=== PATIENT | male | born 1945 | race Caucasian/White ===

== ENCOUNTER → 2019-01-11 11:30 | Outpatient (CLI) | payer MEDICARE, SELFPAY ==
--- NOTE | 2019-01-11 | DI.RAD.S_ITS ---
PROCEDURE: XR HIP W PEL IF DONE LT MIN 4V INDICATIONS: Bilateral Hip Pain TECHNIQUE: AP pelvis with lateral view(s) of the bilateral hip(s). COMPARISON: None. 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 No fracture or dislocation. No evidence of avascular necrosis of femoral heads. Pelvic ring is intact. No suspicious bony lesions. Soft tissues: The visualized bowel gas pattern is normal. No suspicious soft tissue calcifications. 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 Dictated by: Sunil Mcintosh M.D. on 01/11/2019 at 14:24 Approved by: Sunil Mcintosh M.D. on 01/11/2019 at 14:25
== END ==
PROVIDERS: Visit Provider Internal Medicine
DX: M25.551 Pain in right hip (principal); M25.552 Pain in left hip; M16.0 Bilateral primary osteoarthritis of hip
CPT/HCPCS: 73522

== ENCOUNTER 2019-08-08 10:03 | Emergency (ER) | payer MEDICARE, SELFPAY ==
[2019-08-08 10:15] VITALS: BP 138/71; PULSE 68; RESP 15; O2SAT 98; BMI 24.2
--- NOTE | 2019-08-08 10:17 | ED_ITS ---
HPI - Extremity Injury (Lower) General Chief Complaint: Extremity Injury, Lower Stated Complaint: 'fractured hip' Time Seen by Provider: 08/08/19 10:09 Source: patient and family Mode of arrival: Ambulatory Limitations: no limitations History of Present Illness HPI Narrative: 73-year-old male here for evaluations of injuries that he sustained when he had what appears to be a mechanical fall 2 days ago. He is not on blood thinners per report. He states that he did hit his head. There was no loss of consciousness. He is unsure exactly how he fell however family bedside states they think that he tripped while getting up. Has had pain in his right hip since then. Has been able to ambulate but since the fall the pain has been getting worse. It is especially worse when he is sitting. Does have midline neck pain. He is placed in a cervical collar by nursing staff in triage. Related Data Previous Rx's Medication Instructions Recorded naproxen [Naprosyn] 500 mg PO BID PRN #30 tab 08/08/19 Allergies Allergy/AdvReac Type Severity Reaction Status Date / Time No Known Drug Allergies Allergy Verified 08/08/19 10:27 Review of Systems Constitutional Constitutional: Denies fever(s) and Denies headache(s) ENT Ears, Nose, Mouth, and Throat: Denies headache(s) and Reports neck pain Cardiovascular Cardiovascular: Denies chest pain and Denies dyspnea Respiratory Respiratory: Denies dyspnea Gastrointestinal Gastrointestinal: Denies abdominal pain, Reports nausea and Denies vomiting Musculoskeletal Musculoskeletal: Denies myalgias and Reports neck pain Comments: Right hip pain Integumentary/Breasts Skin/Breast: Denies lesions and Denies rash Neurologic Neurologic: Denies headache(s) Comments: Some tingling to the inside of the right foot Hematologic/Lymphatic Hematologic/Lymphatic: Denies easy bleeding and Denies easy bruising Patient History Social History Smoking Status: Current every day smoker Exam Initial Vital Signs Initial Vital Signs: Vital Signs Pulse Rate 68 08/08/19 10:15 Respiratory Rate 15 08/08/19 10:15 Blood Pressure 138/71 08/08/19 10:15 Pulse Oximetry 98 08/08/19 10:15 Const General: cooperative, well developed and well groomed Orientation: alert, awake and oriented x3 HENMT Head: normal to inspection and normocephalic Resp Effort & Inspection: normal respiratory effort Auscultation: clear to auscultation bilaterally Cardio Rate: regular rate Rhythm: regular rhythm GI Inspection: non-distended Palpation: soft Back/Spine/Pelvis Cervical Spine: collar present Skin Lesions: no lesions Rashes: no rashes Neuro General: alert and awake Cognition: normal cognition Speech: speech normal Extrem Other: Tenderness to palpation of the right hip Psych Appearance: grossly normal and well kempt Course Orders Ordered: ED Orders 08/08/19 10:19 CT cervical spine wo con Stat XR hip w pel if done RT 2V Stat 08/08/19 10:51 CT head/brain wo con Stat Discontinued Medications Ondansetron HCl (Zofran Odt) 4 mg PO NOW ONE Stop: 08/08/19 10:20 Last Admin: 08/08/19 10:28 Dose: 4 mg Documented by: DEISI Vital Signs Vital signs: Vital Signs - 8 hr 08/08/19 10:15 08/08/19 10:20 08/08/19 11:00 Temperature 98.0 F Pulse Rate 68 64 Respiratory Rate 15 18 Blood Pressure 138/71 Blood Pressure [Right Arm] 144/65 H Pulse Oximetry 98 100 MDM - Extremity Injury (Lower) Imaging Data CT scan - head: Radiologist's impression: [place] [address] CT Scan Report Signed Patient: Sona Meza#: [id number] : 6Acct:[id number] Age/Sex: 73 / MDate of Service: 08/08/19 Loc: ED Accession Number: [id number] Procedure: CT head/brain wo con Ordering Provider: Vimal Molina D.O. PROCEDURE: CT HEAD/BRAIN WO CON INDICATIONS: Fall with head injury last night TECHNIQUE: Noncontrast 4.5 mm thick angled axial sections acquired from the foramen magnum to the vertex, with coronal and sagittal reformats. For radiation dose reduction, the following was used: automated exposure control, adjustment of mA and/or kV according to patient size. COMPARISON: [facility], CT, CT CERVICAL SPINE WO CON, 08/08/2019, 10:43. FINDINGS: Image quality: Excellent. CSF spaces: Basal cisterns are patent. No extra-axial fluid collections. The ventricles are symmetric in size and shape. Brain: No intracranial bleeds or masses. There is cerebral volume loss for age, with resultant ventricular and sulcal prominence. There are periventricular and deep white matter chronic small vessel ischemic changes. There is intracranial internal carotid artery atherosclerosis. Skull and face: Calvarium and visualized facial bones appear intact, without suspicious lesions. Sinuses: Visualized sinuses and mastoids are clear. IMPRESSION: No acute intracranial hemorrhage is seen. No acute intracranial process is seen. Note is made of age-appropriate brain parenchymal volume loss and chronic small vessel ischemic changes. Dictated by: Mustapha Coates M.D. on 08/08/2019 at 9:55 Approved by: Mustapha Coates M.D. on 08/08/2019 at 9:[address]: Radiologist's impression: [place] [address] CT Scan Report Signed Patient: Ryan Meza#: [id number] : 6Acct:[id number] Age/Sex: 73 / MDate of Service: 08/08/19 Loc: ED Accession Number: [id number] Procedure: CT cervical spine wo con Ordering Provider: Vimal Molina D.O. PROCEDURE: CT CERVICAL SPINE WO CON INDICATIONS: Fall with midline pain last night TECHNIQUE: Noncontrast 3 mm thick sections acquired from the skull base to the T4 level. Sagittal and coronal reformats were then constructed. For radiation dose reduction, the following was used: automated exposure control, adjustment of mA and/or kV according to patient size. COMPARISON: [facility], CT, CT HEAD/BRAIN WO CON, 08/08/2019, 10:43. FINDINGS: Image quality: Excellent. Bones: No fractures or dislocations. Visualized superior ribs are intact. Relatively prominent degenerative changes are seen throughout. Prominent facet hypertrophy can be seen on the left at C2-C3, C3-C4, and C4-C5. There is fusion of the left facet joint at C3-C4. Vertebral body fusion can be seen at C6-C7. Prominent bridging anterior osteophytes are seen throughout the cervical spine. Soft tissues: Prevertebral soft tissues are normal in thickness. No paravertebral hematomas. No apical pneumothoraces. Atherosclerotic calcification is noted. IMPRESSION: No fractures are seen. Advanced cervical spine degenerative changes are seen. Dictated by: Mustapha Coates M.D. on 08/08/2019 at 9:57 Approved by: Mustapha Coates M.D. on 08/08/2019 at 9:59 X-ray hip: Radiologist's impression: [address] [address] XRay Report Signed Patient: Sona MezaMR#: [id number] : 6Acct:[id number] Age/Sex: 73 / MDate of Service: 08/08/19 Loc: ED Accession Number: [id number] Procedure: XR hip w pel if done RT 2V Ordering Provider: Vimal Molina D.O. PROCEDURE: XR HIP W PEL IF DONE RT 2V INDICATIONS: Fall with hip pain TECHNIQUE: AP pelvis with lateral view(s) of the right hip(s). COMPARISON: [facility], CR, XR HIP W PEL IF DONE JUDY 3TO4V, 01/11/2019, 11:42. FINDINGS: Bones: No fractures or dislocations. Pelvic ring appears intact. No suspicious bony lesions. There is severe degenerative joint disease in hips bilaterally, right greater than left. Soft tissues: The visualized bowel gas pattern is normal. No suspicious soft tissue calcifications. IMPRESSION: No definitive fractures or dislocations. Because of severe degenerative changes and suboptimal position (the patient has limited range of motion), subtle occult fractures could be present. If clinical symptoms persist or clinical suspicion for pathology is high, advanced imaging such as CT or MRI is suggested for further evaluation. Dictated by: Pebbles Reeder M.D. on 08/08/2019 at 11:01 Approved by: Pebbles Reeder M.D. on 08/08/2019 at 11:07 [facility] Narrative Medical decision making narrative: Head CT and cervical spine CT negative. The cervical collar was removed. There is no definitive fracture noted on the x-ray of the right hip every does have significant amount of arthritis. He was able to ambulate around the emergency department. I will hold on a CT scan for now given the fact that he has been walking on it the past 2 days and the fact that he has been walking here in the ER. I did discuss this with the patient his family who are bedside. Expressed understanding and agreement plan. Discharge Plan Departure Patient Disposition: Home Clinical Impression: Hip pain, right, Arthritis of right hip Instructions: DI for Arthritis Activity Restrictions/Additional Instructions: Recommend you talk with your primary doctor about referral to see orthopedics. You have no restrictions in your activity. Return to the emergency department for any new or worsening symptoms Prescriptions: New naproxen [Naprosyn] 500 mg tablet 500 mg PO BID PRN (Reason: pain) Qty: 30 RF: 0
[2019-08-08 10:20] VITALS: TEMP 36.7
[2019-08-08] MEDS: ONDANSETRON 4 MG ODT PO (10:28)
--- NOTE | 2019-08-08 10:51 | DI.CT.S_ITS ---
PROCEDURE: CT HEAD/BRAIN WO CON INDICATIONS: Fall with head injury last night TECHNIQUE: Noncontrast 4.5 mm thick angled axial sections acquired from the foramen magnum to the vertex, with coronal and sagittal reformats. For radiation dose reduction, the following was used: automated exposure control, adjustment of mA and/or kV according to patient size. COMPARISON: [facility], CT, CT CERVICAL SPINE WO CON, 08/08/2019, 10:43. FINDINGS: Image quality: Excellent. CSF spaces: Basal cisterns are patent. No extra-axial fluid collections. The ventricles are symmetric in size and shape. Brain: No intracranial bleeds or masses. There is cerebral volume loss for age, with resultant ventricular and sulcal prominence. There are periventricular and deep white matter chronic small vessel ischemic changes. There is intracranial internal carotid artery atherosclerosis. Skull and face: Calvarium and visualized facial bones appear intact, without suspicious lesions. Sinuses: Visualized sinuses and mastoids are clear. IMPRESSION: No acute intracranial hemorrhage is seen. No acute intracranial process is seen. Note is made of age-appropriate brain parenchymal volume loss and chronic small vessel ischemic changes. Dictated by: Mustapha Coates M.D. on 08/08/2019 at 9:55 Approved by: Mustapha Coates M.D. on 08/08/2019 at 9:57
[2019-08-08 11:00] VITALS: BP 144/65; PULSE 64; RESP 18; O2SAT 100
--- NOTE | 2019-08-08 11:24 | PC.NURSE ---
tolerated ambulation with cane to bathroom, noted with occasional facial grimaces. dr bauman made aware.
== END 2019-08-08 11:58 | disposition home or self-care (01) ==
PROVIDERS: Emergency Provider Emergency Medicine
DX: M25.551 Pain in right hip (principal); M16.11 Unilateral primary osteoarthritis, right hip; S09.90XA Unspecified injury of head, initial encounter; W19.XXXA Unspecified fall, initial encounter
CPT/HCPCS: 70450; 72125; 73502; 99283; 99284

== ENCOUNTER → 2019-11-05 16:58 | Outpatient (CLI) | payer MEDICARE, SELFPAY ==
[2019-11-05 17:53] LABS: Add Manual Diff / Slide Review NO; Basophils Absolute Auto 0 /uL (0-100); Basophils Percent Auto 0.2 % (0-2); Eosinophils Absolute Auto 100 /uL (0-450); Eosinophils Percent Auto 0.6 % (2-4); Hematocrit 43.9 % (41-53); Hemoglobin 15.5 g/dL (13.5-17.5); Lymphocytes Absolute Auto 2000 /uL (1100-4500); Lymphocytes Percent Auto 20.5 % (25-40); Mean Corpuscular HGB Conc 35.4 % (30-36); Mean Corpuscular Hemoglobin 33.7 PG (26-34); Mean Corpuscular Volume 95.1 fL (80-100); Monocytes Absolute Auto 800 /uL (0-900); Monocytes Percent Auto 8.3 % (3-14); Neutrophils Absolute Auto 6900 /uL (1500-7000); Neutrophils Percent Auto 70.4 % (50-75); Platelet Count 337 X10^3/uL (150-400); Red Blood Cell Count 4.61 X10^6/uL (4.5-5.9); Red Cell Distribution Width 12.9 % (11.6-14.8); White Blood Cell Count 9.7 X10^3/uL (4.5-11.0)
== END ==
PROVIDERS: Visit Provider Orthopaedic Surgery Adult Reconstructive Orthopaedic Surgery
DX: Z01.818 Encounter for other preprocedural examination (principal); Z01.812 Encounter for preprocedural laboratory examination
CPT/HCPCS: 36415; 85025; 93005; 93010

== ENCOUNTER 2021-01-01 13:04 | Emergency (ER) | payer MEDICARE, SELFPAY ==
[2021-01-01] VITALS (22 sets, daily range): BP systolic 162–195; BP diastolic 82–106; PULSE 57–86; RESP 5–41; TEMP 37.1–37.3; O2SAT 83–99; BMI 20.7
--- NOTE | 2021-01-01 13:38 | DI.MRI.S_ITS ---
PROCEDURE: MR CERVICAL SPINE WO CON INDICATIONS: head injury and fall, CT c spine abnormality TECHNIQUE: Noncontrast sagittal T1 spin echo and T2 fast spin echo, sagittal STIR, foraminal oblique sagittal T2 fast spin echo, and axial gradient echo or T2 fast spin echo through the cervical spine. COMPARISON: [facility], CT, CT CERVICAL SPINE WO CON, 08/08/2019, 10:43. FINDINGS: Image quality: Severely degraded secondary to patient motion artifact. Alignment and Curvature: There is normal bony alignment. Bone Marrow: Marrow demonstrates normal overall signal. Spinal Cord: Increased T2 signal noted in the cervical spinal cord level of the C2-C3 and C5-C6 discs compatible with cord edema. No cerebellar tonsillar herniation. Paraspinous Soft Tissues: No paravertebral masses. Prevertebral soft tissue edema is noted extending from C2-T2. The anterior and posterior longitudinal ligaments are inadequately assessed due to motion artifact. C2-C3: Loss of disc signal. Moderate, diffuse disc bulge. Moderate bilateral facet hypertrophy. Severe narrowing of the central canal with compression of the cervical spinal cord. Severe bilateral neural foraminal narrowing with compression of the exiting C3 nerve roots. C3-C4: Loss of disc signal. Mild right and severe left facet hypertrophy. Mild narrowing of the central canal. Severe left neural foraminal narrowing with compression of the exiting left C4 nerve root. C4-C5: Loss of disc signal. Mild, diffuse disc bulge. Moderate right and severe left facet hypertrophy. Moderate narrowing of the central canal. Moderate right and severe left neural foraminal narrowing with compression of the exiting left C5 nerve root. C5-C6: Loss of disc signal and disc height. Fluid signal noted in the anterior disc space which extends into the prevertebral soft tissues possibly related to acute traumatic injury. The anterior longitudinal ligament may be discontiguous at the C5-C6 disc level, however the ligament is poorly visualized and cannot be definitively assessed. Moderate, diffuse disc bulge. Moderate bilateral facet hypertrophy. Severe narrowing of the central canal with marked compression of the cervical spinal cord. Severe bilateral neural foraminal narrowing with compression of the exiting C6 nerve roots. C6-C7: Near complete loss of disc substance with partial vertebral body fusion. Moderate bilateral facet hypertrophy. Moderate narrowing of the central canal. Moderate bilateral neural foraminal narrowing. No definite neural compression. C7-T1: Near complete loss of disc substance. Mild narrowing of the central canal. Severe bilateral neural foraminal narrowing with compression of the exiting C8 nerve roots. IMPRESSION: 1. Image quality severely degraded by patient motion artifact. 2. Extensive prevertebral soft tissue edema in the setting of trauma is highly concerning for soft tissue/ligamentous injury. Please note the anterior and posterior longitudinal ligaments are inadequately assessed due to motion artifact. Possible tear of the anterior longitudinal ligament noted at the C5-C6 disc level. 3. Multilevel degenerative disc disease. 4. Multilevel facet arthropathy. 5. Severe C2-C3 and C5-C6 central canal narrowing with marked compression of the cervical spinal cord and spinal cord edema. 6. Fluid signal in the anterior margin of the C5-C6 disc space extending into the prevertebral soft tissues concerning for acute intervertebral disc posttraumatic hemorrhage. Dictated by: Ana Singh MD, PhD on 01/01/2021 at 16:21 Approved by: Ana Singh MD, PhD on 01/01/2021 at 16:33
[2021-01-01] MEDS: levETIRAcetam 250 MG TABLET 750 MG PO (14:00)
[2021-01-01] MEDS: ACETAMINOPHEN 325 MG TABLET 650 MG PO (14:00)
[2021-01-01] MEDS: LORazepam 2 MG/ML INJ 1 MG IV (15:14)
--- NOTE | 2021-01-01 15:19 | ED.FALL ---
HPI - Fall <LUNA Allison - Last Filed: 01/01/21 20:42> General Chief Complaint: Fall Stated Complaint: here for MRI Time Seen by Provider: 01/01/21 13:09 Source: patient and EMS Mode of arrival: EMS Limitations: other (History of dementia ) History of Present Illness HPI Narrative: This is a 75-year-old gentleman, smoker, presents to ED with [facility] for MRI test of C-spine. Patient has past medical history significant for seizure, dementia. Patient was evaluated at [facility] Emergency room after he had unwitnessed fall and had a seizure. Patient had a workup done with blood, urine, UDS, and CT test of head and C-spine. CT of C-spine shows increased diastases between bridging osteophytes at C5 through C6 with mild widening of the disc space compare to prior exam suggestive of fracture at the level of the bridging osteophytes and recommended for MRI test. [facility] currently does not have MRI capability and was referred to [facility] for further evaluation of MRI test. Patient sustained laceration on forehead which was repaired at [facility] with Dermabond. Patient reports he has headache. C-spine mildly tender to palpate. Received patient with rigid C-collar. Patient takes Keppra 750 mg b.i.d. dose which he had not taken for morning dose today. Patient received IV fluid and Ativan 1 mg at [facility]. Next of Kin, Sister Taylor Sharif at [phone]. Patient lives at home with a niece and nephew. Related Data Home Medications Medication Instructions Recorded Confirmed levetiracetam 750 mg PO BID 12/12/19 12/12/19 metoprolol tartrate 12.5 mg PO BID 12/12/19 12/12/19 naproxen [Naprosyn] 440 mg PO BID 12/12/19 12/12/19 simvastatin 40 mg PO BEDTIME 12/12/19 12/12/19 Allergies Allergy/AdvReac Type Severity Reaction Status Date / Time No Known Drug Allergies Allergy Verified 01/01/21 13:06 Review of Systems <LUNA Allison - Last Filed: 01/01/21 20:42> Review of Systems Narrative: General: Denies fever, chills, fatigue, malaise, sweats. Musculoskeletal: See HPI Skin: HPI Neurologic: See HPI. Patient denies weakness to extremities on upper and lower bilaterally. Patient oriented to himself only which is his baseline. Psychiatric: No concerning psychosocial issues. Difficulty obtained HPI and review of systems due to history of dementia. Patient History <LUNA Allison - Last Filed: 01/01/21 20:42> Medical History Alzheimer's dementia Anxiety Chest pain Depression Easy bruisability Epilepsy Heart burn Neck pain Numbness and tingling Osteoarthritis Pain RBBB (right bundle branch block) Seizures TIA (transient ischemic attack) Surgical History No history of previous surgery Social History household members: family Smoking Status: Current every day smoker alcohol intake: current Smoking Status: Current every day smoker tobacco type: cigarettes alcohol intake frequency: 3 or more drinks per day Substance Use Type: marijuana Exam <LUNA Allison - Last Filed: 01/01/21 20:42> Narrative Exam Narrative: General appearance: well developed, well nourished, in no acute distress. Head: normocephalic, atraumatic, no scalp lesions, non-tender. ENT: Bilateral auditory canals occluded with cerumen. No drainage from bilateral ears or nares. Hearing grossly intact. Turbinate without erythema or swelling. Facial sinuses nontender to palpate. Mucous membrane dry, no mucosal lesion. Throat without erythema, tonsillar hypertrophy or exudate. Uvula in midline, airway patent. Neck/Thyroid: Patient has a ridgid c collar on. Reports tenderness to palpate in posterior c spine to palpate. Skin: no suspicious rashes, lesions over visible areas. Warm and dry and appropriate color for ethnicity. Heart: no clubbing, no cyanosis, no edema. S1 and S2 normal. RRR w/o murmurs, clicks, or bruits. Lungs: Breathing even and unlabored. No stridor. No accessory muscles used. Able to speak in full sentences. Chest: normal shape and expansion. Abdomen: non-obese, non-distended. Neurologic: alert and oriented to himself. Bilateral pupils 3 mm reactive to light. Bilateral upper and lower extremity strength equal. Reports intact sensation in upper and lower extremities. Difficult to follow verbal command. Psych: good eye contact, normal affect. Cooperative. Initial Vital Signs Initial Vital Signs: Vital Signs Pulse Rate 58 L 01/01/21 13:06 Respiratory Rate 14 01/01/21 13:06 Blood Pressure 186/82 H 01/01/21 13:06 Pulse Oximetry 99 01/01/21 13:06 <Vimal Molina DO - Last Filed: 01/02/21 07:35> Initial Vital Signs Initial Vital Signs: Vital Signs Pulse Rate 58 L 01/01/21 13:06 Respiratory Rate 14 01/01/21 13:06 Blood Pressure 186/82 H 01/01/21 13:06 Pulse Oximetry 99 01/01/21 13:06 Scores <LUNA Allison - Last Filed: 01/01/21 20:42> GCS Nina coma scale eye opening: Spontaneous Gustavus coma scale verbal response: Confused Gustavus coma scale motor response: Obey commands Gustavus coma scale total score: 14 Course <LUNA Allisno - Last Filed: 01/01/21 20:42> Orders Ordered: Discontinued Medications Acetaminophen (Acetaminophen 325 Mg Tablet) 650 mg PO NOW ONE Stop: 01/01/21 13:36 Last Admin: 01/01/21 14:00 Dose: 650 mg Documented by: JAYRO Sodium Chloride (Normal Saline 0.9%) 1,000 mls @ 125 mls/hr IV CONT ROBERTO Last Infusion: 01/01/21 21:01 Dose: 125 mls/hr Documented by: Admin: 01/01/21 20:23 Dose: 125 mls/hr Documented by: JAYRO Levetiracetam (Levetiracetam 250 Mg Tablet) 750 mg PO NOW ONE Stop: 01/01/21 13:36 Last Admin: 01/01/21 14:00 Dose: 750 mg Documented by: JAYRO Lorazepam (Lorazepam 2 Mg/Ml Inj) 1 mg IV NOW ONE Stop: 01/01/21 15:07 Last Admin: 01/01/21 15:14 Dose: 1 mg Documented by: LEANNE Morphine Sulfate (Morphine 2 Mg/Ml Inj) 2 mg IV Q5MIN PRN PRN Reason: Pain, Mild (1-3) Last Admin: 01/01/21 20:37 Dose: 2 mg Documented by: JAYRO Ondansetron HCl (Ondansetron 4 Mg/2 Ml Inj) 4 mg IV NOW ONE Stop: 01/01/21 20:32 Last Admin: 01/01/21 20:37 Dose: 4 mg Documented by: JAYRO Reevaluation(s) Reevaluation #1: Spoke with the patient's sister of MRI findings and she would like to talk with the patient and is on her way to the hospital for options for treatment either surgical vs. non-invasive. Time: 18:10 Reevaluation #2: Patient elects for the cervical surgery and to [place] to the sister and I have verified the patient's wishes which he concurred. [facility] transfer center contacted and confirmed this via ALS ground transfer. Time: 20:00 Consultations Consultation #1: RAD called to inform that too much motion artifacts and could not provide the diagnostic results. Radiologist's is concerned for ligamentous injury which could be unstable for c spine injury. Recommending moderate sedation involving anesthesiologist care. Shared this information with Dr. Molina for recommendation and plan for the care. Anesthesiologist contacted and informed no capability to monitor the patient in MRI for longer and moderate sedation. Will consult [facility] for possible transferring the patient. Pushing imaging to [facility]. Rigid collar changing to [place] collar. Time: 16:35 Consultation #2: Spoke with Dr. Kellogg (spine/neuro) at [facility] and he informed imaging quality is good enough. If seeking surgical intervention, he accepts the patient's transfer but if decides non-invasive treatment, patient could be dc to home with [place] collar on. Will contact the family member and will discuss the findings. Family (sister Taylor Sharif) contacted over the phone on [phone] and left a phone message to call back ER. Time: 17:55 Vital Signs Vital signs: Vital Signs - 8 hr 01/01/21 13:06 01/01/21 13:09 01/01/21 13:30 Temperature Pulse Rate 58 L 57 L 58 L Respiratory Rate 14 24 27 H Blood Pressure 186/82 H Pulse Oximetry 99 97 95 01/01/21 14:00 01/01/21 14:30 01/01/21 14:41 Temperature Pulse Rate 62 86 79 Respiratory Rate 26 H 41 H 18 Blood Pressure 175/93 H Pulse Oximetry 97 83 L 98 01/01/21 15:49 01/01/21 15:50 01/01/21 16:00 Temperature Pulse Rate 73 72 82 Respiratory Rate 14 5 L 27 H Blood Pressure 195/90 H Pulse Oximetry 99 97 97 01/01/21 16:30 01/01/21 17:00 01/01/21 17:30 Temperature Pulse Rate 68 76 68 Respiratory Rate 20 27 H 17 Blood Pressure Pulse Oximetry 96 98 95 01/01/21 18:00 01/01/21 18:06 01/01/21 18:07 Temperature 99.1 F Pulse Rate 76 79 81 Respiratory Rate 22 24 23 Blood Pressure 173/106 H Pulse Oximetry 95 96 95 01/01/21 18:30 Temperature Pulse Rate 69 Respiratory Rate 19 Blood Pressure Pulse Oximetry 95 <Vimal Molina DO - Last Filed: 01/02/21 07:35> Orders Ordered: Discontinued Medications Acetaminophen (Acetaminophen 325 Mg Tablet) 650 mg PO NOW ONE Stop: 01/01/21 13:36 Last Admin: 01/01/21 14:00 Dose: 650 mg Documented by: JAYRO Sodium Chloride (Normal Saline 0.9%) 1,000 mls @ 125 mls/hr IV CONT ROBERTO Last Infusion: 01/01/21 21:01 Dose: 125 mls/hr Documented by: Admin: 01/01/21 20:23 Dose: 125 mls/hr Documented by: JAYRO Levetiracetam (Levetiracetam 250 Mg Tablet) 750 mg PO NOW ONE Stop: 01/01/21 13:36 Last Admin: 01/01/21 14:00 Dose: 750 mg Documented by: JAYRO Lorazepam (Lorazepam 2 Mg/Ml Inj) 1 mg IV NOW ONE Stop: 01/01/21 15:07 Last Admin: 01/01/21 15:14 Dose: 1 mg Documented by: LEANNE Morphine Sulfate (Morphine 2 Mg/Ml Inj) 2 mg IV Q5MIN PRN PRN Reason: Pain, Mild (1-3) Last Admin: 01/01/21 20:37 Dose: 2 mg Documented by: JAYRO Ondansetron HCl (Ondansetron 4 Mg/2 Ml Inj) 4 mg IV NOW ONE Stop: 01/01/21 20:32 Last Admin: 01/01/21 20:37 Dose: 4 mg Documented by: JAYRO Vital Signs Vital signs: Vital Signs - 8 hr 01/01/21 13:06 01/01/21 13:09 01/01/21 13:30 Temperature Pulse Rate 58 L 57 L 58 L Respiratory Rate 14 24 27 H Blood Pressure 186/82 H Pulse Oximetry 99 97 95 01/01/21 14:00 01/01/21 14:30 01/01/21 14:41 Temperature Pulse Rate 62 86 79 Respiratory Rate 26 H 41 H 18 Blood Pressure 175/93 H Pulse Oximetry 97 83 L 98 01/01/21 15:49 01/01/21 15:50 01/01/21 16:00 Temperature Pulse Rate 73 72 82 Respiratory Rate 14 5 L 27 H Blood Pressure 195/90 H Pulse Oximetry 99 97 97 01/01/21 16:30 01/01/21 17:00 01/01/21 17:30 Temperature Pulse Rate 68 76 68 Respiratory Rate 20 27 H 17 Blood Pressure Pulse Oximetry 96 98 95 01/01/21 18:00 01/01/21 18:06 01/01/21 18:07 Temperature 99.1 F Pulse Rate 76 79 81 Respiratory Rate 22 24 23 Blood Pressure 173/106 H Pulse Oximetry 95 96 95 01/01/21 18:30 Temperature Pulse Rate 69 Respiratory Rate 19 Blood Pressure Pulse Oximetry 95 MDM - Fall <Yamil LUNA Balderas - Last Filed: 01/01/21 20:42> Differential Diagnosis Differential diagnosis: Likely other (C-spine fracture, neck strain, closed head injury, forehead laceration which has repaired) Medical Records Attestation: I reviewed the patient's medical records. Lab Data Labs: Lab Results 01/01/21 Range/Units 17:00 SARS-CoV-2 (PCR) Negative (Negative) Imaging Data MRI-C spine: Radiologist's Impression: [address] [id number] Resonance ReportSigned Patient: Sona Meza#: [id number]: 6Acct:[id number]/Sex: 75 / MDate of Service: 01/01/21Loc: EDAccession Number: [id number] Procedure: MR cervical spine wo con Ordering Provider: Yamil Balderas PROCEDURE: MR CERVICAL SPINE WO CON INDICATIONS: head injury and fall, CT c spine abnormality TECHNIQUE: Noncontrast sagittal T1 spin echo and T2 fast spin echo, sagittal STIR, foraminal oblique sagittal T2 fast spin echo, and axial gradient echo or T2 fast spin echo through the cervical spine. COMPARISON: [facility], CT, CT CERVICAL SPINE WO CON, 08/08/2019, 10:43. FINDINGS: Image quality: Severely degraded secondary to patient motion artifact. Alignment and Curvature: There is normal bony alignment. Bone Marrow: Marrow demonstrates normal overall signal. Spinal Cord: Increased T2 signal noted in the cervical spinal cord level of the C2-C3 and C5-C6 discs compatible with cord edema. No cerebellar tonsillar herniation. Paraspinous Soft Tissues: No paravertebral masses. Prevertebral soft tissue edema is noted extending from C2-T2. The anterior and posterior longitudinal ligaments are inadequately assessed due to motion artifact. C2-C3: Loss of disc signal. Moderate, diffuse disc bulge. Moderate bilateral facet hypertrophy. Severe narrowing of the central canal with compression of the cervical spinal cord. Severe bilateral neural foraminal narrowing with compression of the exiting C3 nerve roots. C3-C4: Loss of disc signal. Mild right and severe left facet hypertrophy. Mild narrowing of the central canal. Severe left neural foraminal narrowing with compression of the exiting left C4 nerve root. C4-C5: Loss of disc signal. Mild, diffuse disc bulge. Moderate right and severe left facet hypertrophy. Moderate narrowing of the central canal. Moderate right and severe left neural foraminal narrowing with compression of the exiting left C5 nerve root. C5-C6: Loss of disc signal and disc height. Fluid signal noted in the anterior disc space which extends into the prevertebral soft tissues possibly related to acute traumatic injury. The anterior longitudinal ligament may be discontiguous at the C5-C6 disc level, however the ligament is poorly visualized and cannot be definitively assessed. Moderate, diffuse disc bulge. Moderate bilateral facet hypertrophy. Severe narrowing of the central canal with marked compression of the cervical spinal cord. Severe bilateral neural foraminal narrowing with compression of the exiting C6 nerve roots. C6-C7: Near complete loss of disc substance with partial vertebral body fusion. Moderate bilateral facet hypertrophy. Moderate narrowing of the central canal. Moderate bilateral neural foraminal narrowing. No definite neural compression. C7-T1: Near complete loss of disc substance. Mild narrowing of the central canal. Severe bilateral neural foraminal narrowing with compression of the exiting C8 nerve roots. IMPRESSION: 1. Image quality severely degraded by patient motion artifact. 2. Extensive prevertebral soft tissue edema in the setting of trauma is highly concerning for soft tissue/ligamentous injury. Please note the anterior and posterior longitudinal ligaments are inadequately assessed due to motion artifact. Possible tear of the anterior longitudinal ligament noted at the C5-C6 disc level. 3. Multilevel degenerative disc disease. 4. Multilevel facet arthropathy. 5. Severe C2-C3 and C5-C6 central canal narrowing with marked compression of the cervical spinal cord and spinal cord edema. 6. Fluid signal in the anterior margin of the C5-C6 disc space extending into the prevertebral soft tissues concerning for acute intervertebral disc posttraumatic hemorrhage. Dictated by: Ana Singh MD, PhD on 01/01/2021 at 16:21 Approved by: Ana Singh MD, PhD on 01/01/2021 at 16:33 [facility] Narrative Medical decision making narrative: This is a 75-year-old gentleman who is pleasantly confused with history of dementia, seizure, hypertension presents to [facility] ED after he was referred from [facility] for MRI test after he was evaluated for closed head injury, seizure after a fall this morning. Initial workup completed at [facility] with labs, CT of head, C-spine, UDS. Patient awake and oriented to self only which is known as his baseline. Difficulty assessing sensation adequately due to patient difficulty following instructions. Patient is able to move all upper and lower extremities equally. Pupil 3mm bilaterally reacts to light. Appreciated tenderness to palpate in posterior C-spine and reports headache upon arrival. MRI test was scheduled at 3:00 a.m. which was obtained. MRI impression-poor quality due to motion artifacts even after patient received benzodiazepine prior to procedure. Impression of MRI-extensive pre vertebral soft tissue edema with highly concerning for soft tissue ligamentous injury with possible tear of the anterior longitudinal ligament at the C5 through C6 disc level. Severe C2 through C3 and C5 through C6 central canal narrowing with marked compression of cervical spinal cord and spinal cord edema. There is fluid signal in the anterior margin of C5-C6 disc space extending into the prevertebral soft tissue concerning for acute intervertebral disc posttraumatic hemorrhage. Radiologist was not able to confirm anterior and posterior longitudinal ligament injury due to motion artifact. Dr. Singh recommended moderate sedation for repeat MRI test but [facility] MRI machine is not compatible with cardiac monitoring for procedural sedation. [facility] contacted to consult and Dr. Miranda accepted the patient's care if patient willing to have surgery for C-spine canal narrowing with markedly compressed cervical spinal cord/edema. Patient is full code status. Contacted his sister who left a phone number as POC and Next of kin. Sister states she has been making some medical decisions for the patient but not official POA. Sister agrees to come into the ER to help the patient making the medical decision whether to go ahead with surgery. Findings shared with the patient and sister at the bedside. Patient like to go ahead with surgery which I verified with patient. Covid test was negative. Rigid C collar changed out to [place] collar after the MRI test. Patient assessed several times during ED stay, denies significant discomfort in his neck. Contacted the [facility] transfer center to confirm the Dr. Miranda's acceptance and to transfer the patient to ED. Required documentation completed and faxed to [facility]. Patient received Keppra 750mg and Tylenol 650 mg when he arrived to ED this afternoon and receiving gentle NS infusion. He had small sips of water and small bites of pudding/apple sauce after MRI tests at 1615. Patient received Zofran 4 mg and morphine 2 mg as needed for pain. <Vimal Molina, DO - Last Filed: 01/02/21 07:35> Lab Data Labs: Lab Results 01/01/21 Range/Units 17:00 SARS-CoV-2 (PCR) Negative (Negative) Discharge Plan Departure Patient Disposition: [facility] Clinical Impression: Seizure disorder Cervical spinal cord injury Qualifiers: Encounter type: initial encounter Qualified Code(s): S14.109A - Unspecified injury at unspecified level of cervical spinal cord, initial encounter Closed head injury Qualifiers: Encounter type: initial encounter Qualified Code(s): S09.90XA - Unspecified injury of head, initial encounter Fall Qualifiers: Encounter type: initial encounter Qualified Code(s): W19.XXXA - Unspecified fall, initial encounter Prescriptions: No Action simvastatin 40 mg Tablet 40 mg PO BEDTIME RF: 0 levetiracetam 750 mg Tablet 750 mg PO BID RF: 0 metoprolol tartrate 25 mg Tablet 12.5 mg PO BID RF: 0 naproxen [Naprosyn] 500 mg tablet 440 mg PO BID RF: 0 <Vimal Molina, DO - Last Filed: 01/02/21 07:35> [facility] Dr Molina Co-Sign Statement: I was available for consultation during this patient's emergency department visit. This chart is signed by myself for administrative purposes only. I did not have direct contact with this patient during this visit. They were seen independently by the APC.
--- NOTE | 2021-01-01 16:05 | PC.NURSE ---
Pt arrived back from MRI, lines changed, soaked attends changed, pericare performs, warm blankets provided and pt repositioned.
--- NOTE | 2021-01-01 16:27 | PC.NURSE ---
Assisted patient with eating. Took a couple bites of chocolate pudding. Declined other snacks that were brought in. Also declined water. Offered additional bites of pudding a few times during assistance but patient declined. Offered further assistance should he want to eat more food later.
--- NOTE | 2021-01-01 17:02 | PC.NURSE ---
Pt placed in [place] Collar, C spine maintained. Pt's sister Mustapha updated on plan of care. Pt repositioned and lights of for pt comfort.
[2021-01-01 18:20] LABS: COVID19 -Nasal RAPID Negative (Negative)
[2021-01-01] MEDS: SODIUM CHLORIDE 0.9% 1,000 ML 125 ML IV (20:23)
[2021-01-01] MEDS: MORPHINE 2 MG/ML INJ IV (20:37)
[2021-01-01] MEDS: ONDANSETRON 4 MG/2 ML INJ IV (20:37)
--- NOTE | 2021-01-01 20:39 | PC.NURSE ---
Pt c/o bl arm and neck pain but unable to articulate number. Pt goes in and out of lucidity. Will follow commands, oriented to self at baseline. Pt medicated for pain. Pt ready for transfer to [facility]. RN report sheet faxed. Pt's belongings packed and labeled.
--- NOTE | 2021-01-01 20:40 | PC.NURSE ---
Changed brief for patient and changed out chucks at 2034.
== END 2021-01-01 21:02 | disposition short-term general hospital (02) ==
PROVIDERS: Emergency Provider Nurse Practitioner Family
DX: G40.909 Epilepsy, unspecified, not intractable, without status epilepticus (principal); S09.90XA Unspecified injury of head, initial encounter; S14.109A Unspecified injury at unspecified level of cervical spinal cord, initial encounter; F03.90 Unspecified dementia, unspecified severity, without behavioral disturbance, psychotic disturbance, mood disturbance, and anxiety; W19.XXXA Unspecified fall, initial encounter; Z20.822 Contact with and (suspected) exposure to COVID-19
CPT/HCPCS: 72141; 87635; 96361; 96374; 96375; 99284; C9803; J2060; J2270; J2405

== ENCOUNTER 2023-04-01 23:20 | Inpatient (IN) | payer MEDICARE, MEDICAID, SELFPAY ==
[2023-04-01 23:26] VITALS: BP 131/73; PULSE 70; RESP 16; TEMP 37; O2SAT 96
--- NOTE | 2023-04-01 23:39 | DI.RAD.S_ITS ---
PROCEDURE: XR HIP W PEL IF DONE LT 2V INDICATIONS: injury, fell out of bed TECHNIQUE: AP pelvis with lateral view(s) of the left hip(s). COMPARISON: [facility], CR, XR HIP W PEL IF DONE RT 2V, 08/08/2019, 10:40. [facility], CR, XR HIP W PEL IF DONE JUDY 3TO4V, 01/11/2019, 11:42. FINDINGS: Bones: No dislocations. Pelvic ring appears intact. No suspicious bony lesions. There is an acute impacted mildly comminuted left femoral neck fracture, and osteoarthritic change at each hip is quite severe with [id number] articulation. Soft tissues: The visualized bowel gas pattern is normal. No suspicious soft tissue calcifications. IMPRESSION: Acute fracture femoral neck on the left, superimposed moderately severe to severe bilateral hip joint osteoarthritis. Dictated by: James Cowart M.D. on 04/02/2023 at 0:11 Approved by: James Cowart M.D. on 04/02/2023 at 0:13
[2023-04-02] VITALS (18 sets, daily range): BP systolic 81–118; BP diastolic 38–66; PULSE 13–94; RESP 11–96; TEMP 36.1–37; O2SAT 3–98; BMI 20.2
--- NOTE | 2023-04-02 | DI.RAD.S_ITS ---
PROCEDURE: XR PELVIS 1-2V INDICATIONS: postop TECHNIQUE: Single-view of the pelvis acquired. COMPARISON: [facility], BAR, XR HIP W PEL IF DONE RT 2V, 08/08/2019, 10:40. [facility], BAR, XR PELVIS 1-2V, 04/02/2023, 19:55. FINDINGS: Bones: There is a new left hip prosthesis which demonstrates near anatomic alignment. Severe osteoarthritic changes of the right hip are redemonstrated. Bony pelvis appears intact. Soft tissues: There are periarticular postsurgical changes around the left hip including multiple skin octaviano. IMPRESSION: 1. Expected postsurgical changes status post left hip arthroplasty. Dictated by: Bryan Valles M.D. on 04/02/2023 at 22:21 Approved by: Bryan Valles M.D. on 04/02/2023 at 22:22
--- NOTE | 2023-04-02 | DI.RAD.S_ITS ---
PROCEDURE: XR PELVIS 1-2V INDICATIONS: INTER-OP HIP HEMIARTHROPLASTY TECHNIQUE: 1 intraoperative view of the pelvis acquired. COMPARISON: [facility], CR, XR HIP W PEL IF DONE LT 2V, 04/01/2023, 23:46. FINDINGS: Bones: Intraoperative view of the lower pelvis demonstrates partial placement of a left hip arthroplasty with the femoral component in place. Severe right hip joint osteoarthritic changes redemonstrated. Soft tissues: Overlying intraoperative surgical instrumentation noted. IMPRESSION: 1. Intraoperative film demonstrates partial placement of a left hip prosthesis. Dictated by: Bryan Valles M.D. on 04/03/2023 at 1:41 Approved by: Bryan Valles M.D. on 04/03/2023 at 1:43
--- NOTE | 2023-04-02 00:38 | ED.LOWEXIN ---
HPI - Extremity Injury (Lower) General Chief Complaint: Extremity Injury, Lower Stated Complaint: ROLL OUT OF BED WITH LEFT HIP PAIN Time Seen by Provider: 04/01/23 23:54 Source: patient and EMS Mode of arrival: EMS History of Present Illness HPI Narrative: 77-year-old gentleman with a history of seizure disorder and he describes his last seizure approximately 3 years ago. He is mild dementia and currently lives in a group family home on [facility]. He does have a history of a stroke. Apparently this evening he rolled out of bed landed on his left hip and did hit his head. It is unclear if there was a loss consciousness or not. He was unable to stand up. Describes no other fevers, cough, chills. When he is not moving he has no pain complaints. Leg is held in slight external rotation with the knee at 45? for comfort. He is neurovascularly intact. Related Data Home Medications Medication Instructions Recorded Confirmed levetiracetam 750 mg tablet 750 mg PO BID 12/12/19 04/02/23 metoprolol tartrate 25 mg tablet 12.5 mg PO BID 12/12/19 04/02/23 acetaminophen 500 mg tablet 1,000 mg PO TID 04/02/23 04/02/23 aspirin 81 mg tablet,delayed 81 mg PO DAILY 04/02/23 04/02/23 release atorvastatin 20 mg tablet 20 mg PO BEDTIME 04/02/23 04/02/23 cholecalciferol (vitamin D3) 25 1,000 unit PO DAILY 04/02/23 04/02/23 mcg (1,000 unit) tablet diclofenac sodium 1 % topical gel 4 g topical QID 04/02/23 04/02/23 (Arthritis Pain (diclofenac)) ferrous sulfate 325 mg (65 mg 325 mg PO DAILY 04/02/23 04/02/23 iron) tablet,delayed release gabapentin 300 mg capsule 300 mg PO DAILY 04/02/23 04/02/23 gabapentin 300 mg capsule 600 mg PO BID 04/02/23 04/02/23 melatonin 3 mg tablet 6 mg PO BEDTIME 04/02/23 04/02/23 omeprazole 20 mg capsule,delayed 20 mg PO DAILY 04/02/23 04/02/23 release polyethylene glycol 3350 17 gram 17 g PO BID 04/02/23 04/02/23 oral powder packet (Miralax) prazosin 1 mg capsule 1 mg PO BEDTIME 04/02/23 04/02/23 sennosides 8.6 mg tablet (senna) 8.6 mg PO BID 04/02/23 04/02/23 sertraline 100 mg tablet 100 mg PO BEDTIME 04/02/23 04/02/23 Allergies Allergy/AdvReac Type Severity Reaction Status Date / Time No Known Drug Allergies Allergy Verified 01/04/21 08:34 Review of Systems Review of Systems Narrative: Pertinent positive and negative findings as per HPI Patient History Medical History Alzheimer's dementia Anxiety Chest pain Depression Easy bruisability Epilepsy Heart burn Neck pain Numbness and tingling Osteoarthritis Pain RBBB (right bundle branch block) Seizures TIA (transient ischemic attack) Surgical History No history of previous surgery Social History household members: family Smoking Status: Smoker, status unknown alcohol intake: current Smoking Status: Current every day smoker tobacco type: cigarettes alcohol intake frequency: 3 or more drinks per day Substance Use Type: marijuana Exam Initial Vital Signs Initial Vital Signs: Vital Signs Temperature 98.6 F 04/01/23 23:26 Pulse Rate 70 04/01/23 23:26 Respiratory Rate 16 04/01/23 23:26 Blood Pressure 131/73 04/01/23 23:26 Pulse Oximetry 96 04/01/23 23:26 Oxygen Delivery Method Room Air 04/01/23 23:26 General: Older-appearing gentleman in no acute distress. Cooperative with exam HEENT: Moist mucous membranes, normal sclera with reactive pupils, atraumatic normocephalic Neck: No midline cervical spine tenderness, supple Respiratory: Lungs are clear to auscultation, no wheezing no rales no rhonchi. Full and symmetrical air movement Cardiac: Regular rate and rhythm no murmurs no bruits Abdomen: Soft, nontender, good bowel tones, no flank pain Skin: Warm and dry, no rashes Neurologic: Grossly neurologically intact with no obvious asymmetries or abnormalities Extremities: No tenderness with manipulation of pelvic ring. Pain along the lateral aspect of the left hip. Neurovascularly intact. No knee or ankle complaints on the left side. Right side is unremarkable. Psych: Cooperative, somewhat tangential Course Orders Ordered: ED Orders 04/01/23 23:39 XR hip w pel if done LT 2V Stat 04/02/23 00:51 CT cervical spine wo con Stat CT head/brain wo con Stat 04/02/23 01:05 Complete Blood Count AUTO DIFF Stat Comprehensive Metabolic Panel Stat Troponin I Stat Acetaminophen (Acetaminophen 325 Mg Tablet) 650 mg PO Q6H PRN PRN Reason: Fever/Mild Pain (1-3) Diclofenac Sodium (Diclofenac 1% Gel 100 Gm) 1 applic TOP QID PRN PRN Reason: Pain, Mild (1-10 Hydromorphone HCl (Hydromorphone 0.5 Mg Inj) 0.5 mg IV Q2H PRN PRN Reason: Pain, Severe (4-10 Last Admin: 04/02/23 04:17 Dose: 0.5 mg Documented By: PRADEEP Dextrose/Sodium Chloride (Dextrose 5%-0.9% Ns) 1,000 mls @ 80 mls/hr IV CONT ROBERTO Last Admin: 04/02/23 04:16 Dose: 80 mls/hr Documented By: PRADEEP Levetiracetam (Levetiracetam 250 Mg Tablet) 750 mg PO BID ROBERTO Lidocaine (Lidocaine Patch 1 Each Adh..Patch) 1 each TOP DAILY PRN PRN Reason: Pain, Moderate (4-10 Metoprolol Tartrate (Metoprolol Ir 25 Mg Tablet) 12.5 mg PO BID ROBERTO Naloxone HCl (Naloxone 0.4 Mg/Ml Vial) 0.2 mg IV Q2MIN PRN PRN Reason: Opiate Reversal Ondansetron HCl (Ondansetron 4 Mg/2 Ml Inj) 4 mg IV Q4HR PRN PRN Reason: Nausea And Vomiting Prazosin HCl (Prazosin 1 Mg Capsule) 1 mg PO BEDTIME ROBERTO Sennosides (Sennosides 8.6 Mg Tablet) 17.2 mg PO BEDTIME ROBERTO Sertraline HCl (Sertraline 50 Mg Tablet) 100 mg PO BEDTIME ROBERTO Discontinued Medications Hydromorphone HCl (Hydromorphone 0.5 Mg Inj) 0.5 mg IV Q15MIN PRN PRN Reason: Pain, Last Admin: 04/02/23 01:18 Dose: 0.5 mg Documented By: ANOOP Sodium Chloride (Normal Saline 0.9%) 1,000 mls @ 150 mls/hr IV CONT ROBERTO Last Admin: 04/02/23 04:31 Dose: Not Given Documented By: PRADEEP Ondansetron HCl (Ondansetron 4 Mg/2 Ml Inj) 4 mg IV PRN PRN PRN Reason: Pain, Mild (1-3) Vital Signs Vital signs: Vital Signs - 8 hr 04/01/23 23:26 Temperature 98.6 F Pulse Rate 70 Respiratory Rate 16 Blood Pressure 131/73 Pulse Oximetry 96 Oxygen Delivery Method Room Air MDM - Extremity Injury (Lower) Lab Data 04/02/23 05:50 04/02/23 05:50 Labs: Lab Results 04/02/23 04/02/23 Range/Units 01:05 01:05 WBC 6.6 (4.5-11.0) X10^3/uL RBC 3.28 L (4.5-5.9) X10^6/uL Hgb 11.1 L (13.5-17.5) g/dL Hct 32.3 L (41-53) % MCV 98.5 (80-100) fL MCH 33.7 (26-34) PG MCHC 34.2 (30-36) % RDW 16.6 H (11.6-14.8) % Plt Count 196 (150-400) X10^3/uL Neut % (Auto) 67.6 (50-75) % Lymph % (Auto) 23.4 L (25-40) % [place] % (Auto) 7.6 (3-14) % Eos % (Auto) 1.1 L (2-4) % Baso % (Auto) 0.3 (0-2) % Neut # (Auto) 4500 (3706-2415) /uL Lymph # (Auto) 1600 (8752-5614) /uL [place] # (Auto) 500 (0-900) /uL Eos # (Auto) 100 (0-450) /uL Baso # (Auto) 0 (0-100) /uL Sodium 137 (137-145) mmol/L Potassium 3.9 (3.4-5.1) mmol/L Chloride 104 (98-107) mmol/L Carbon Dioxide 28 (22-32) mmol/L BUN 16 (9-20) mg/dL Creatinine 0.97 (0.66-1.25) mg/dL Estimated GFR > 60 (>60) mL/min BUN/Creatinine Ratio 16.5 (6-22) Glucose 103 (80-110) mg/dL Calcium 8.8 (8.4-10.2) mg/dL Total Bilirubin 0.3 (0.2-1.3) mg/dL AST 36 (17-59) IU/L ALT 41 (<50) IU/L Alkaline Phosphatase 151 H (38-126) U/L Troponin I < 0.012 (0.01-0.034) ng/mL Total Protein 7.2 (6.3-8.2) g/dL Albumin 3.9 (3.5-5.0) g/dL Globulin 3.3 (1.7-4.1) g/dL Albumin/Globulin Ratio 1.2 (1.0-2.8) MDM Narrative Medical decision making narrative: CC: Rolled out of bed, lives at an adult family home, complaining of left hip pain. Acute problem uncertain prognosis Complicating co-morbidities: Seizures, BPH, depression, constipation -no anticoagulation Data collected from: patient, Social determinants of health that may influence the patients condition: Currently lives in adult family senior living Medical records reviewed: Notes from his group family home were reviewed and med list is updated in the chart today Differential considered: Hip fracture, femur fracture, pelvic fracture, soft tissue injury, head injury, cervical spine injury Exam documented above, pertinent findings include: Pleasantly confused gentleman cooperative slight pain in the left hip with movement otherwise unremarkable exam Lab Test results independently reviewed as above. Pertinent findings: CBC is notable for absence of leukocytosis. Slight anemia at 11.1 and 32.3 with normal MCV Chemistries are reassuring with creatinine at 0.97 Independently reviewed EKG Sinus rhythm at a rate of 66 Incomplete right bundle branch block. Poor baseline overall that no acute ischemic changes are appreciated. Appropriate intervals and axis. Imaging studies independently reviewed: Xr hip Acute fracture femoral neck on the left, Due to fall from bed unclear whether he hit his head and slight dementia, additional imaging is performed. CT head no acute abnormalities or intracranial bleed Cervical spine is unremarkable Chest x-ray Consultations: 2:25am Dr Robert, orthopedic surgery. She will consult 2:40am Ms Maldonado, hospitalist, will admit Treatments: Po Freeman Discussion: Pleasant 77-year-old gentleman who rolled out of bed falling onto his left hip sustaining a left intertrochanteric displaced hip fracture. Care is reviewed with Dr. Robert. She will consult. Patient is informed that he did break his hip and will need surgery. Discharge Plan Departure Patient Disposition: Home Clinical Impression: Accidental fall from bed, Seizure disorder Closed hip fracture Qualifiers: Encounter type: initial encounter Laterality: left Qualified Code(s): S72.002A - Fracture of unspecified part of neck of left femur, initial encounter for closed fracture Dementia Qualifiers: Dementia type: unspecified type Dementia severity: moderate Dementia behavioral or psychological symptom: without behavioral, psychotic, or mood disturbance or anxiety Qualified Code(s): F03.B0 - Unspecified dementia, moderate, without behavioral disturbance, psychotic disturbance, mood disturbance, and anxiety
--- NOTE | 2023-04-02 00:51 | DI.CT.S_ITS ---
PROCEDURE: CT CERVICAL SPINE WO CON INDICATIONS: fall from bed with hip fx TECHNIQUE: Noncontrast 3 mm thick sections acquired from the skull base to the T4 level. Sagittal and coronal reformats were then constructed. For radiation dose reduction, the following was used: automated exposure control, adjustment of mA and/or kV according to patient size. COMPARISON: [facility], CT, CT CERVICAL SPINE WO CON, 08/08/2019, 10:43. FINDINGS: Image quality: Somewhat degraded by metal artifact from extensive fusion devices along the course of the cervical spine bilaterally.. Bones: No fractures or dislocations. Visualized superior ribs are intact. Prior extensive spine fusion procedure along the cervical spine bilaterally. There is no visualized evidence of device loosening or disruption. Soft tissues: Prevertebral soft tissues are normal in thickness. No paravertebral hematomas. No apical pneumothoraces. IMPRESSION: No acute trauma found. Metal artifact from extensive bilateral posterior transverse pedicle screws and vertical fixation rods reduces quality of visualization but no definite trauma is found when this is taken into account. Dictated by: James Cowart M.D. on 04/02/2023 at 2:01 Approved by: James Cowart M.D. on 04/02/2023 at 2:03
--- NOTE | 2023-04-02 00:51 | DI.CT.S_ITS ---
PROCEDURE: CT HEAD/BRAIN WO CON INDICATIONS: fell from bed, hit head, hip fx TECHNIQUE: Noncontrast 4.5 mm thick angled axial sections acquired from the foramen magnum to the vertex, with coronal and sagittal reformats. For radiation dose reduction, the following was used: automated exposure control, adjustment of mA and/or kV according to patient size. COMPARISON: [facility], CT, CT HEAD/BRAIN WO CON, 08/08/2019, 10:43. FINDINGS: Image quality: Excellent. CSF spaces: Basal cisterns are patent. No extra-axial fluid collections. The ventricles are symmetric in size and shape. Brain: No intracranial bleeds or masses. There is cerebral volume loss for age, with resultant ventricular and sulcal prominence. There are periventricular and deep white matter chronic small vessel ischemic changes. There is intracranial internal carotid artery atherosclerosis. Skull and face: Calvarium and visualized facial bones appear intact, without suspicious lesions. Sinuses: Visualized sinuses and mastoids are clear except for mild soft tissue thickening left maxillary sinus.. IMPRESSION: No trauma found. Mild chronic appearing left maxillary sinus mucosal thickening without air-fluid level. Dictated by: James Cowart M.D. on 04/02/2023 at 2:00 Approved by: James Cowart M.D. on 04/02/2023 at 2:01
[2023-04-02] MEDS: HYDROMORPHONE 0.5 MG INJ IV ×3 (01:18→08:54)
[2023-04-02 01:30] LABS: Alanine Aminotransferase 41 IU/L (<50); Albumin 3.9 g/dL (3.5-5.0); Albumin Globulin Ratio 1.2 (1.0-2.8); Alkaline Phosphatase 151 U/L (38-126); Aspartate Aminotransferase 36 IU/L (17-59); BUN Creatinine Ratio 16.5 (6-22); Bilirubin Total 0.3 mg/dL (0.2-1.3); Blood Urea Nitrogen 16 mg/dL (9-20); Calcium 8.8 mg/dL (8.4-10.2); Carbon Dioxide 28 mmol/L (22-32); Chloride 104 mmol/L (98-107); Estimated Glomerular Filt Rate > 60 mL/min (>60); Globulin 3.3 g/dL (1.7-4.1); Glucose 103 mg/dL (80-110); HEMOLYSIS < 15 (0-50); Potassium 3.9 mmol/L (3.4-5.1); Sodium 137 mmol/L (137-145); Total Protein 7.2 g/dL (6.3-8.2)
[2023-04-02 01:31] LABS: Add Manual Diff / Slide Review NO; Basophils Absolute Auto 0 /uL (0-100); Basophils Percent Auto 0.3 % (0-2); Eosinophils Absolute Auto 100 /uL (0-450); Eosinophils Percent Auto 1.1 % (2-4); Hematocrit 32.3 % (41-53); Hemoglobin 11.1 g/dL (13.5-17.5); Lymphocytes Absolute Auto 1600 /uL (1100-4500); Lymphocytes Percent Auto 23.4 % (25-40); Mean Corpuscular HGB Conc 34.2 % (30-36); Mean Corpuscular Hemoglobin 33.7 PG (26-34); Mean Corpuscular Volume 98.5 fL (80-100); Monocytes Absolute Auto 500 /uL (0-900); Monocytes Percent Auto 7.6 % (3-14); Neutrophils Absolute Auto 4500 /uL (1500-7000); Neutrophils Percent Auto 67.6 % (50-75); Platelet Count 196 X10^3/uL (150-400); Red Blood Cell Count 3.28 X10^6/uL (4.5-5.9); Red Cell Distribution Width 16.6 % (11.6-14.8); White Blood Cell Count 6.6 X10^3/uL (4.5-11.0)
[2023-04-02 01:41] LABS: Troponin I < 0.012 ng/mL (0.01-0.034)
--- NOTE | 2023-04-02 02:46 | DI.RAD.S_ITS ---
PROCEDURE: XR CHEST 1V INDICATIONS: pre-op TECHNIQUE: One view of the chest was acquired. COMPARISON: None. FINDINGS: Surgical changes and devices: None. Lungs and pleura: Lungs are clear. No pleural effusions or pneumothorax. Mediastinum: Mediastinal contours appear normal. Heart size is normal. Bones and chest wall: No suspicious bony lesions. Overlying soft tissues appear unremarkable. IMPRESSION: No acute cardiopulmonary findings Approved by: Steven Hernandez M.D. on 04/02/2023 at 10:06
--- NOTE | 2023-04-02 03:03 | P.HP_ITS ---
History of Present Illness History of Present Illness Date Patient Seen: 04/02/23 Time Patient Seen: 03:03 Chief complaint: Left femoral neck fracture Narrative: Sona Meza is a pleasantly demented 77-year-old male with a past medical history of seizure disorder, remote TIA, RTBBB Alzheimer's dementia, HDL, iron- deficiency, GERD, &HTN who resides at a retirement on [facility], was brought into the ED after rolling out of bed landing on the floor fracturing left femur. Ed was unable to verify if pt had hit his head or had a LOC, head CT was negative for any acute changes. Unable to obtain accurate HPI, ROS, med reconciliation due to patient's Alzheimer dementia. Patient complains of left hip pain, denies chest pain, shortness at breath, any other pain or discomfort at this time. His moving around in bed and appears to be in mild discomfort, but in no acute distress at this time. Vitals temp 98.6?, 107/56, 66, 18, 93% on room air. Laboratory workups are unremarkable with the exception of HGB 11/HCT 32, alk-phos 151, troponin is normal, head CT, C-spine, chest x-ray are all without acute changes. Hip x-ray demonstrated acute fracture of left femoral neck. EKG I personally reviewed sinus rhythm of 66 with an incomplete RBBB without ST or T-wave changes. [facility] Medical History Alzheimer's dementia Anxiety Chest pain Depression Easy bruisability Epilepsy Heart burn Neck pain Numbness and tingling Osteoarthritis Pain RBBB (right bundle branch block) Seizures TIA (transient ischemic attack) Surgical History No history of previous surgery Social History household members: family Smoking Status: Current every day smoker alcohol intake: current Meds Home Medications and Allergies Home Medications Medication Instructions Recorded Confirmed Type levetiracetam 750 mg tablet 750 mg PO BID 12/12/19 04/02/23 History metoprolol tartrate 25 mg tablet 12.5 mg PO BID 12/12/19 04/02/23 History acetaminophen 500 mg tablet 1,000 mg PO TID 04/02/23 04/02/23 History aspirin 81 mg tablet,delayed 81 mg PO DAILY 04/02/23 04/02/23 History release atorvastatin 20 mg tablet 20 mg PO BEDTIME 04/02/23 04/02/23 History cholecalciferol (vitamin D3) 25 1,000 unit PO DAILY 04/02/23 04/02/23 History mcg (1,000 unit) tablet diclofenac sodium 1 % topical gel 4 g topical QID 04/02/23 04/02/23 History (Arthritis Pain (diclofenac)) ferrous sulfate 325 mg (65 mg 325 mg PO DAILY 04/02/23 04/02/23 History iron) tablet,delayed release gabapentin 300 mg capsule 300 mg PO DAILY 04/02/23 04/02/23 History gabapentin 300 mg capsule 600 mg PO BID 04/02/23 04/02/23 History melatonin 3 mg tablet 6 mg PO BEDTIME 04/02/23 04/02/23 History omeprazole 20 mg capsule,delayed 20 mg PO DAILY 04/02/23 04/02/23 History release polyethylene glycol 3350 17 gram 17 g PO BID 04/02/23 04/02/23 History oral powder packet (Miralax) prazosin 1 mg capsule 1 mg PO BEDTIME 04/02/23 04/02/23 History sennosides 8.6 mg tablet (senna) 8.6 mg PO BID 04/02/23 04/02/23 History sertraline 100 mg tablet 100 mg PO BEDTIME 04/02/23 04/02/23 History Allergies Allergy/AdvReac Type Severity Reaction Status Date / Time No Known Drug Allergies Allergy Verified 01/04/21 08:34 Review of Systems Review of Systems Narrative: All 12 point systems reviewed with the patient and are negative except otherwise documented. Please note accuracy of ROS is impaired due to the patient's Alzheimer dementia Exam Vital Signs (past 8 hours): - 04/01/23 23:26 04/02/23 02:52 04/02/23 02:53 Temperature 98.6 F Pulse Rate 70 66 Respiratory Rate 16 18 Blood Pressure 131/73 107/56 L Pulse Oximetry 96 93 Oxygen Delivery Method Room Air Room Air Oxygen Delivery Method Room Air Narrative Exam Narrative: General: Patient is a elderly gentleman, cachectic pleasantly demented, with mild to moderate left hip pain but in no acute distress at this time. HEENT: Normocephalic, atraumatic, extraocular muscles intact, oral pharynx is clear and mucous membranes are dry. Neck is supple and symmetric, trachea is midline, no adenopathy, no thyroid enlargement, nontender, no masses palpated. Negative for JVD Chest: Normal AP diameter and contour without kyphoscoliosis, Equal chest rise without nasal flaring, retractions, tachypneic or labored breathing. Lungs: Auscultation of all lung rudolph are clear without adventitious sounds, wheezes, rhonchi, or rales. Cardio: regular rate and rhythm without murmur, rubs, or gallops, no carotid bruit, no cardiac pulsations present. Abdomen: Soft nontender, negative for organomegaly, or masses. Bowel sounds are present in all 4 quadrants without guarding or rebound, no CVA tenderness. Musculoskeletal: Significant muscle wasting throughout but equal. Patient moving all extremities with the exception of left lower leg, though patient is stroking left lower leg with right foot. Extremities no effusions, cyanosis, clubbing or edema present. intact radial and pedal pulses are normal. Left leg externally rotated, knee @ 45? angle. Skin: Warm dry and intact without rashes, ulcerations or petechiae. Neuro: Alert and orientated to self. sensation to touch intact, no gross deficits noted of cranial nerves. Psych: Patient is pleasant, able to follow commands. Objective Labs 04/02/23 01:05 04/02/23 01:05 Labs: Laboratory Results - last 24 hr 04/02/23 04/02/23 01:05 01:05 WBC 6.6 RBC 3.28 L Hgb 11.1 L Hct 32.3 L MCV 98.5 MCH 33.7 MCHC 34.2 RDW 16.6 H Plt Count 196 Neut % (Auto) 67.6 Lymph % (Auto) 23.4 L [place] % (Auto) 7.6 Eos % (Auto) 1.1 L Baso % (Auto) 0.3 Neut # (Auto) 4500 Lymph # (Auto) 1600 [place] # (Auto) 500 Eos # (Auto) 100 Baso # (Auto) 0 Sodium 137 Potassium 3.9 Chloride 104 Carbon Dioxide 28 BUN 16 Creatinine 0.97 Estimated GFR > 60 BUN/Creatinine Ratio 16.5 Glucose 103 Calcium 8.8 Total Bilirubin 0.3 AST 36 ALT 41 Alkaline Phosphatase 151 H Troponin I < 0.012 Total Protein 7.2 Albumin 3.9 Globulin 3.3 Albumin/Globulin Ratio 1.2 Assessment & Plan Assessment & Plan narrative: Sona Meza is a 77-year-old male with a past medical history of seizure disorder, history of TIA, RTBBB Alzheimer's dementia, HDL, iron-deficiency, GERD, HTN who resides at a facility on [facility], was brought into the ED after rolling out of bed landing on the floor fracturing left femur. Fall from bed, resulting in pathologic left femoral neck fracture, acute, present on admission * Dr. Robert to consult and will take the patient to the OR later today * NPO with the exception of sips with meds * Zhang placement, I&O * D5 NS at 80 cc/HR, BS q.6 while NPO * Pain and antiemetic management, ice for comfort, lidocaine patches, Voltaren * H&H * UA ordered, trend CBC, BMP, PT/INR in a.m. Seizure disorder, chronic, present on admission * Continue Keppra * Seizure precautions Alzheimer's dementia, chronic, present on admission * Limit patient's stimulation & agitation as much as possible * Fall precautions * Continue sertraline, prazosin Hypertension, essential, chronic, present on admission * Hold metoprolol as BP is soft at this time 107/56 Hyperlipidemia, chronic, present on admission * Hold Lipitor until after surgery Osteoarthritis, chronic, present on admission * Continue gabapentin GERD, chronic, present on admission * Hold omeprazole till after surgery Iron-deficiency anemia, chronic, present on admission * H&H * Hold ferrous sulfate till after surgery Code status:Full- unable to verify at this time, nursing will contact facility on days to verify advanced directive. Surrogate decision maker: Sister Mustapha hughes DVT/VTE prophylaxis: Holding medication due to surgery, right SCD only Disposition: Patient admitted to acute care for left femur fracture repair, expected length of stay to exceed 2 midnights. I have utilized all available immediate resources to obtain, update, or review the patient's current medications. I confirmed that the patient's advanced care plan is present, Code status is documented and/or surrogate decision maker is listed in the patient's medical record. I have personally reviewed patient's chart notes from PCP, specialists, diagnostic imaging, and laboratory results. Scores GCS Nina coma scale eye opening: Spontaneous Nina coma scale verbal response: Confused [place] coma scale motor response: Obey commands Nina coma scale total score: 14
[2023-04-02] MEDS: DEXTROSE 5%-0.9% NS 1,000 ML 80 ML IV (04:16)
[2023-04-02 05:21] LABS: Appearance Urine UA CLEAR; Bilirubin Urine UA NEGATIVE (NEGATIVE); Color Urine UA YELLOW; Glucose Urine UA NEGATIVE (Negative); Ketones Urine UA TRACE (NEGATIVE); Leukocyte Esterase Urine UA NEGATIVE (NEGATIVE); Nitrite Urine UA NEGATIVE (Negative); Occult Blood Urine UA NEGATIVE (Negative); Protein Urine UA NEGATIVE (Negative); Urobilinogen Urine UA 0.2 E.U./dL (0.2)
[2023-04-02 05:35] LABS: Bacteria Urine None Seen; Culture Indicated Urine Cult Not Indicated; RBC Urine None Seen (0-5/HPF); Squamous Epithelial Cell Urine None Seen (0-5/HPF); WBC Urine None Seen (0-5/HPF)
[2023-04-02 05:59] LABS: Add Manual Diff / Slide Review NO; Basophils Absolute Auto 0 /uL (0-100); Basophils Percent Auto 0.2 % (0-2); Eosinophils Absolute Auto 100 /uL (0-450); Eosinophils Percent Auto 1.1 % (2-4); Hematocrit 30.2 % (41-53); Hemoglobin 10.4 g/dL (13.5-17.5); Lymphocytes Absolute Auto 1700 /uL (1100-4500); Lymphocytes Percent Auto 29.1 % (25-40); Mean Corpuscular HGB Conc 34.5 % (30-36); Mean Corpuscular Hemoglobin 33.5 PG (26-34); Mean Corpuscular Volume 97.2 fL (80-100); Monocytes Absolute Auto 600 /uL (0-900); Neutrophils Absolute Auto 3500 /uL (1500-7000); Neutrophils Percent Auto 59.6 % (50-75); Platelet Count 186 X10^3/uL (150-400); Red Blood Cell Count 3.11 X10^6/uL (4.5-5.9); White Blood Cell Count 5.8 X10^3/uL (4.5-11.0)
[2023-04-02 06:05] LABS: INR 1.2 (0.9-1.3); Prothrombin Time 13.8 SECONDS (10.1-12.7)
[2023-04-02 06:08] LABS: PTT Partial Thromboplastin Tim 34 SECONDS (26-36)
[2023-04-02 06:09] LABS: BUN Creatinine Ratio 19.6 (6-22); Blood Urea Nitrogen 19 mg/dL (9-20); Calcium 8.5 mg/dL (8.4-10.2); Carbon Dioxide 28 mmol/L (22-32); Chloride 104 mmol/L (98-107); Estimated Glomerular Filt Rate > 60 mL/min (>60); Glucose 111 mg/dL (80-110); HEMOLYSIS < 15 (0-50); Potassium 3.9 mmol/L (3.4-5.1); Sodium 138 mmol/L (137-145)
--- NOTE | 2023-04-02 07:25 | P.HP_ITS ---
History of Present Illness History of Present Illness Date Patient Seen: 04/02/23 Time Patient Seen: 07:25 Date of Onset of Symptoms: 04/01/23 Chief complaint: Left femoral neck fracture Narrative: Patient is a 77-year-old male with Alzheimer's dementia lives in a fpc. He would a fall sometime last evening was unable to ambulate. He was brought by EMS to the hospital. This morning on my evaluation he is quite somnolent and speaks very softly very difficult to interpret answers to questions. Medical power of corporate attorney is daughter Judit. When asked if he ambulates states he pushes what is assumed to be a walker around. He is a history of bilateral hip arthritis otherwise personal medical history is difficult. Remainder of medical history obtained from chart and family. [facility] Medical History Alzheimer's dementia Anxiety Chest pain Depression Easy bruisability Epilepsy Heart burn Neck pain Numbness and tingling Osteoarthritis Pain RBBB (right bundle branch block) Seizures TIA (transient ischemic attack) Surgical History No history of previous surgery Social History household members: family Smoking Status: Smoker, status unknown alcohol intake: current Meds Home Medications and Allergies Home Medications Medication Instructions Recorded Confirmed Type levetiracetam 750 mg tablet 750 mg PO BID 12/12/19 04/02/23 History metoprolol tartrate 25 mg tablet 12.5 mg PO BID 12/12/19 04/02/23 History acetaminophen 500 mg tablet 1,000 mg PO TID 04/02/23 04/02/23 History aspirin 81 mg tablet,delayed 81 mg PO DAILY 04/02/23 04/02/23 History release atorvastatin 20 mg tablet 20 mg PO BEDTIME 04/02/23 04/02/23 History cholecalciferol (vitamin D3) 25 1,000 unit PO DAILY 04/02/23 04/02/23 History mcg (1,000 unit) tablet diclofenac sodium 1 % topical gel 4 g topical QID 04/02/23 04/02/23 History (Arthritis Pain (diclofenac)) ferrous sulfate 325 mg (65 mg 325 mg PO DAILY 04/02/23 04/02/23 History iron) tablet,delayed release gabapentin 300 mg capsule 300 mg PO DAILY 04/02/23 04/02/23 History gabapentin 300 mg capsule 600 mg PO BID 04/02/23 04/02/23 History melatonin 3 mg tablet 6 mg PO BEDTIME 04/02/23 04/02/23 History omeprazole 20 mg capsule,delayed 20 mg PO DAILY 04/02/23 04/02/23 History release polyethylene glycol 3350 17 gram 17 g PO BID 04/02/23 04/02/23 History oral powder packet (Miralax) prazosin 1 mg capsule 1 mg PO BEDTIME 04/02/23 04/02/23 History sennosides 8.6 mg tablet (senna) 8.6 mg PO BID 04/02/23 04/02/23 History sertraline 100 mg tablet 100 mg PO BEDTIME 04/02/23 04/02/23 History Allergies Allergy/AdvReac Type Severity Reaction Status Date / Time No Known Drug Allergies Allergy Verified 01/04/21 08:34 Review of Systems Review of Systems ROS: Yes unobtainable due to mental condition Exam Vital Signs (past 8 hours): - 04/01/23 23:26 04/02/23 02:52 04/02/23 02:53 Temperature 98.6 F Pulse Rate 70 66 Respiratory Rate 16 18 Blood Pressure 131/73 107/56 L Pulse Oximetry 96 93 Oxygen Delivery Method Room Air Room Air 04/02/23 04:36 04/02/23 04:43 Temperature 97.7 F Pulse Rate 70 Respiratory Rate 19 Blood Pressure 118/66 Pulse Oximetry 97 Oxygen Delivery Method Room Air Oxygen Delivery Method Room Air Narrative Exam Narrative: General exam the patient is lying in bed. Thin male. Responds to voice and speaks but in a whisper that is difficult to hear. When asked to move extremities wiggles hand and fingers bilaterally and toes. Does not lift arms. Tenderness left hip. Palpable dorsalis pedis pulses but I can not get him to demonstrate dorsiflexion of the ankles on either side this morning. Pre more he was moving most extremities more last night prior to pain medication. Slight shortened externally rotated left lower extremity. No other obvious deformities. Calves are soft bilaterally. Heart regular rate and rhythm lungs clear to auscultation bilaterally Objective Imaging AP pelvis and left lateral hip x-ray: My impression: Displaced left femoral neck fracture underlying bilateral hip arthritis Radiologist's impression: Acute fracture femoral neck on left superimposed moderately severe to severe bi lateral hip joint osteoarthritis Labs 04/02/23 05:50 04/02/23 05:50 Labs: Laboratory Results - last 24 hr 04/02/23 04/02/23 04/02/23 01:05 01:05 05:18 WBC 6.6 RBC 3.28 L Hgb 11.1 L Hct 32.3 L MCV 98.5 MCH 33.7 MCHC 34.2 RDW 16.6 H Plt Count 196 Neut % (Auto) 67.6 Lymph % (Auto) 23.4 L Morrow % (Auto) 7.6 Eos % (Auto) 1.1 L Baso % (Auto) 0.3 Neut # (Auto) 4500 Lymph # (Auto) 1600 Morrow # (Auto) 500 Eos # (Auto) 100 Baso # (Auto) 0 PT INR APTT Sodium 137 Potassium 3.9 Chloride 104 Carbon Dioxide 28 BUN 16 Creatinine 0.97 Estimated GFR > 60 BUN/Creatinine Ratio 16.5 Glucose 103 Calcium 8.8 Total Bilirubin 0.3 AST 36 ALT 41 Alkaline Phosphatase 151 H Troponin I < 0.012 Total Protein 7.2 Albumin 3.9 Globulin 3.3 Albumin/Globulin Ratio 1.2 Urine Color Yellow Urine Appearance Clear Urine pH 6.0 Ur Specific Wayland 1.010 Urine Protein Negative Urine Glucose (UA) Negative Urine Ketones Trace H Urine Occult Blood Negative Urine Nitrate Negative Urine Bilirubin Negative Urine Urobilinogen 0.2 Ur Leukocyte Esterase Negative Urine RBC None seen Urine WBC None seen Ur Squamous Epith Cells None seen Urine Bacteria None seen Ur Culture Indicated? Cult not indicated 04/02/23 04/02/23 04/02/23 05:50 05:50 05:50 WBC 5.8 RBC 3.11 L Hgb 10.4 L Hct 30.2 L MCV 97.2 MCH 33.5 MCHC 34.5 RDW 17.0 H Plt Count 186 Neut % (Auto) 59.6 Lymph % (Auto) 29.1 Morrow % (Auto) 10.0 Eos % (Auto) 1.1 L Baso % (Auto) 0.2 Neut # (Auto) 3500 Lymph # (Auto) 1700 Morrow # (Auto) 600 Eos # (Auto) 100 Baso # (Auto) 0 PT 13.8 H INR 1.2 APTT 34 Sodium 138 Potassium 3.9 Chloride 104 Carbon Dioxide 28 BUN 19 Creatinine 0.97 Estimated GFR > 60 BUN/Creatinine Ratio 19.6 Glucose 111 H Calcium 8.5 Total Bilirubin AST ALT Alkaline Phosphatase Troponin I Total Protein Albumin Globulin Albumin/Globulin Ratio Urine Color Urine Appearance Urine pH Ur Specific Wayland Urine Protein Urine Glucose (UA) Urine Ketones Urine Occult Blood Urine Nitrate Urine Bilirubin Urine Urobilinogen Ur Leukocyte Esterase Urine RBC Urine WBC Ur Squamous Epith Cells Urine Bacteria Ur Culture Indicated? Assessment & Plan Assessment and plan (1) Closed hip fracture: Qualifiers: Encounter type: initial encounter Laterality: left Qualified Code(s): S72.002A - Fracture of unspecified part of neck of left femur, initial encounter for closed fracture Status: Acute (2) Dementia: Qualifiers: Dementia behavioral or psychological symptom: without behavioral, psychotic, or mood disturbance or anxiety Dementia severity: moderate Dementia type: unspecified type Qualified Code(s): F03.B0 - Unspecified dementia, moderate, without behavioral disturbance, psychotic disturbance, mood disturbance, and anxiety Status: Acute (3) Anemia: Status: Acute Plan Patient has a closed displaced left femoral neck fracture. He is underlying arthritis. And diagnosis of Alzheimer's dementia. He is indicated for a cemented partial hip replacement, hemiarthroplasty of the left hip. We will need to discuss with surrogate decision maker. Discussed without surgical treatment expectation would be nonambulatory. Discussed the benefits of surgery to allow early range of motion and ambulation reduce the risks of prolonged immobility. There are significant risks with this injury and with surgery including heart attack stroke dislocation pain fracture, blood clot, , and blood loss anemia The patient is already starting with anemia on hospital admission. Will use tranexamic acid to help reduce blood loss but may require transfusion if symptomatic postoperatively. High-level medical decision-making. Serous fracture requiring hospitalization risks of significant comorbidities and with this injury both with immediate perioperative and 30 day in 1 year mortality. However due to the morbidity of non treated hip fractures the benefits of surgery outweigh the risks. Time Spent With Patient Time with patient: 50 to 69 minutes with 50% spent counseling/coordinating care Quality VTE Deep Vein Thrombosis/Pulmonary Embolism Present on Admission: No
--- NOTE | 2023-04-02 08:42 | CM.DPNOTE ---
DCP: Attempted to call patient's sister, Taylor, her phone number is: [phone]. Left a non-detailed message for her to call back. Did get in touch with patient's niece, Shaylee Mcdonnell, she is not patient' POA, her number is [phone]. She confirmed that Taylor is the patient's legal POA. This DC Baseball Player did not leave any detailed information. It is known that patient does reside at an adult family home in [place], but no further information is available. Ariella White RN/Steel Hanger
--- NOTE | 2023-04-02 09:07 | PC.NURSE ---
pt alert knows person, place and situation. c/o left hip pain 06/25 medicated with dilaudid 0.5mg ivp npo for or today.
[2023-04-02] MEDS: levETIRAcetam 250 MG TABLET 750 MG PO ×2 (10:48→22:03)
[2023-04-02] MEDS: METOPROLOL IR 25 MG TABLET 12.5 MG PO (10:48)
--- NOTE | 2023-04-02 12:27 | CM.DANOTE ---
DCP: Case received, EMR reviewed. Unable to obtain any information from patient, and have a call out to WU, who is Taylor, patient's DPOA, in order to get more information regarding patient's baseline activity, and the facility information in which he resides. Completed assessment based upon information currently available. Was able to reach patient's niece, Shaylee Mcdonnell, and confirmed that sister, Mustapha, is DPOA, and that patient lives in an adult family home in [place], name or number unknown. Patient is a 77 year old male who admitted early this morning to the care of the hospitalist team. PCP: Unknown at this time. Payer: confirmed: [employer] Medicare. Patient came to the hospital via ambulance secondary to a ground level fall that occurred in his home. Notes indicate that patient has mild dementia, resides at an adult family home in [place]. Patient has history of CVA. Patient had fallen out of his bed, and was unable to stand afterward. Patient ended up with left femoral neck fracture. Surgeon is attempting to reach POA, Taylor Remiabigail, patient's sister, for surgical consent. Her phone number is: [phone]. Checked on patient, did write name of this DC Dental Instrument Maker on white board in patient's room. Patient is awake, quiet, answers brief questions with yes or no. Alert to self, but unable to get any further history from patient. Spoke briefly to patient's niece, Sri Mcdonnell, did not give her any medical information, but did find out that Taylor is POA. Left a message on Taylor's phone to call this DC Dental Instrument Maker, but did not leave any detailed information. It is noted that patient lives in an adult family home on [address], but no phone number or name of home. Niece did indicate it is a private home, but does not know the name of it. Patient may need long-term, has AARP Medicare, will need an insurance auth, and facilities in network are both [facility], and [facility]. Will have to see how he does after surgery, and if he is able to participate after caruso, with P.T. P: DCP to continue to follow. Was informed that DPOA will be coming to see patient, will attempt to meet with her to get further information, and to discuss some DC Planning. Ariella White, RN/Monorail Crane Operator Discharge Planning/Care Management CM Discharge Assessment Start: 04/02/23 12:23 Freq: Status: Active Protocol: Document 04/02/23 12:23 (Rec: 04/02/23 12:27 [id number]) Discharge Planning Assessment Assigned Medical Record Specialist Ariella White RN/Monorail Crane Operator Advance Directives? Yes Advance Directives on File No History Provided By Patient,Medical Record Prior Living Arrangements Adult Family Home Household Members family Type of transporation used prior to Relies on Others admit Facility Name Admitted From: Adult Home Willing to Return to Facility? Yes Independent with ADL's No Is patient alert and oriented? No: Alert to self, not situation, place. Needs Assistance With Bathing,Meal Prep,Toileting, Managing Medications,Home Chores / Shopping Caregiver for Another No DME Already Rented / Owned FWW / Walker Comment unknown if patient has wheelchair. Comment Patient most likely will need long-term, will need to discuss with POA, and will need to work with P.T. as well . Barriers to Discharge Yes Comment Has some dementia, will have to see how he does after surgery, as far as long-term placement. Discharge Plan Care Home Facility Transportation Arrangement Facility Referrals Initiated Other Additional Comment Will need to discuss with DPOA . Has Agency SNF been contacted No Comment Not until discussion with DPOA . Whiteboard Updated in Patient Room with Yes name and ext. # of Medical Record Specialist Review Status In Process Next Review Type Continued Stay Review
[2023-04-02] MEDS: LACTATED RINGERS 1,000 ML 42 ML IV ×3 (16:54→23:40)
--- NOTE | 2023-04-02 17:35 | SUR.HOLD ---
Patient to holding area for left hip repair from room 212; seizure pads in place due to previous seizure history; patient alert, oriented to self and knows that he is in the hospital; locke catheter draining claudette-colored urine to bedside bag; 400 mls of urine emptied on arrival to holding area. Patient following all commands. Moaning in pain due to left hip discomfort. Verbal consent obtained over the phone with sister, Mustapha, who is also POA.
[2023-04-02] MEDS: TRANEXAMIC ACID 1,000 MG in SODIUM CHLORIDE 0.9% 100 ML 200 MG IV ×2 (18:23→20:20)
--- NOTE | 2023-04-02 18:53 | SUR.OPER ---
Lateral on padded OR bed. Gel axillary roll. Arms secured on padded armboard with pillow supporting top arm. Padded hip positioner braces x4 - anterior and posterior chest and pelvis. Additional gel pad used anterior pelvis. Gel pad under bottom leg from knee to foot and secured with tape over sheet.
[2023-04-02] MEDS: ACETAMINOPHEN IV 1,000 MG/100 ML VIAL 400 MG IV (19:05)
[2023-04-02] MEDS: BUPIVACAINE 0.25% (PF) 30 ML, EPINEPHrine 0.15 MG INJ (19:12)
[2023-04-02] MEDS: BUPIVACAINE LIPOSOME 266 MG/20 ML VIAL INJ (20:28)
--- NOTE | 2023-04-02 20:37 | PM.OP.1 ---
Operative Date/Time/Diagnoses Date of procedure: 04/02/23 Time of procedure: 18:30 Pre-op diagnosis: Left femoral neck fracture displaced Dementia Left hip arthritis Post-op diagnosis: same Procedure & Clinicians Procedure: Hemiarthroplasty for left femoral neck fracture fixation with endoprosthesis. CPT code 22489 Same procedure as scheduled: Yes Indications: Patient is a 77-year-old male with a history of seizures and dementia who lives in a longterm that had a fall. He is only able to give us very limited information but his sister is power of admitted attorneys and was able to provide additional information. After the patient's fall he was unable to weightbear he was brought to [facility] and found to have a displaced left femoral neck fracture. He has underlying severe bilateral hip arthritis. He was an ambulator with a walker and is limited by his dementia and history of seizures and severe hip arthritis. He was indicated for hemiarthroplasty to treat his displaced femoral neck fracture and allow mobilization. The risks and benefits of the procedure have been discussed with the patient and separately with the POA on the telephone and they were given the opportunity to ask questions. The risks of surgery include but are not limited to infection, fracture, dislocation, persistence of pain, damage to nerves and blood vessels, DVT, PE, cardiopulmonary complications and . The power of admitted attorneys expressed a thorough understanding of the risks and benefits of surgery and has elected to proceed. Telephone Consent was signed and witnessed During the operation, the services of a physician surgical garment assembly supervisor were medically indicated and necessary to provide the exposure of the operative site for the surgical procedure and to maintain the limb in a proper position to carry out the operation safely and efficiently. Without a qualified welder assistant being present this would extended the operative procedure and made the procedure technically more difficult to perform. Surgeon: Jamia Hickman Plastic Die Maker Apprentice: Shannan Corona Click Yes if Unassisted: Yes Anesthesia Type: General and Local Operative Notes Findings: Displaced femoral neck fracture severe hip arthritic changes Closure Type: primary Specimen(s): none sent Prosthetic devices, grafts, tissues, transplants, or devices: Estevez and Nephew Synergy unipolar femoral component cobalt chromium size 12 Estevez and Nephew tandem unipolar +4 taper sleeve and tandem unipolar cobalt chromium head 46 mm Distal post centralizer 10 mm small bone plug restrictor Estimated Blood Loss (mL): 200 Blood products transfused: none Tourniquet time (min): 0 Procedure in detail: Hemiarthroplasty for femoral neck fracture CPT code 84961. Patient was seen in the preoperative area the site of surgery was marked and informed consent confirmed. The patient was brought back to the operating room by the anesthesia team. Patient was positioned supine on the operative table. General anesthetic was administered. Patient was then moved into the lateral position. The hip buying agent positioner pads were then placed. A well-padded axillary roll was placed and the arms were appropriately positioned. The affected lower extremity was prepped and draped from the ankle to the iliac crest with ChloraPrep in the standard fashion sterile drapes were placed. Formal time-out procedure was performed confirming the patient's side and site of surgery, presence of informed consent, administration of appropriate preoperative antibiotics. Hip was approached through a standard posterior approach. Dissection was carried down through the skin and subcutaneous tissues sharply through the skin and then with the Bovie through the subcutaneous tissues. The fascia sonja was exposed and opened. Fascia was opened using the Bovie and the gluteus kadie was spread with finger retraction. The Charnley retractor was placed. The inflamed bursa was resected. The piriformis was then identified. A Cobra retractor was placed under the gluteus medius to help expose the external rotators. The piriformis and short external rotators were tagged with a 2 Ethibond and divided of the trochanter. These were then retracted posteriorly to protect sciatic nerve. The femur was then flexed and internally rotated to present the femoral neck and the fracture. A corkscrew and a Estrada were used to remove the femoral head from the acetabulum. This was measured to fit a 48 mm head but due to the severe arthritis this was very difficult to fit in the cup and was down sized to a 46 mm head head. Next the femur was presented. A clean-up neck cut was made in a minimal fashion. The trial head size was trialed in the acetabulum. Attention was then turned to the femur. The canal was opened with a box cutting osteotome. This followed by the canal finer and a lateralizing Reamer. The tapered reamers were then used up to a size 12 Then broaching was sequentially done up to a size 12. Trial components were placed. Again it was difficult to get the head reduced it was 1st trialed with a minus neck and an x-ray was taken. The patient was stable in the position of sleep, squatting and could be put through a range of motion with 70? of internal rotation without dislocation. This was felt to be appropriate. An intraop a AP pelvis x-ray was obtained to assess component position. Final components were then selected. The final stem was a size 12. Femoral canal was prepared . The distal small restrictor was placed approximately 1 cm distal to the end of the planned implant. The bone was meticulously cleaned with pulse lavage. Canal was then packed with gauze. Two packages of cement were mixed and carefully pressurized into the femoral canal. The femoral component was then placed without difficulty. This was held in place until the cement hardened. The repeat trial reduction was done with the 46 mm head and the 0 neck and this did reduce and therefore was also tried to size up to a +4 neck as the previous intraop x-ray did show some shortening. The hip did reduce with the +4 neck and Showed good range of motion and stability. The final head and neck were then carefully placed. The wound was irrigated. The capsule and muscular flap was repaired with the 2. Ethibond. Next the short external rotators were repaired to the greater trochanter through drill holes in the greater trochanter using the 2.5 drill and a HoTealeafon suture Passer. These were tied with the leg in abduction. The wound was then irrigated again. Exparel was injected for postoperative pain control. The fascia sonja was closed with 0 Vicryl and the subcutaneous layer was closed with 2-0 Vicryl and the skin with octaviano. An Aquacel dressing was placed. An abduction pillow was placed for protection. The drapes removed and the patient was taken to the recovery room in good condition. There no immediate complications from this procedure. All counts were correct. Postoperative AP pelvis x-ray was obtained in the PACU showed appropriate alignment of the cemented hip hemiarthroplasty with no evidence of fracture. Complications: none Post-operative Condition: stable Disposition: PACU Plan for aftercare: Weightbear as tolerated with assistive devices. Abduction pillow while in bed. Posterior hip precautions for 6 weeks. Lovenox 40 mg subcutaneous for 4 weeks for DVT prophylaxis. Follow-up in 2 weeks for staple removal. May shower with Aquacel dressing but no soaking incision. Change as needed.
--- NOTE | 2023-04-02 21:28 | SUR.PHASEI ---
Patient arousable to verbal, following simple commands; appears to be in no distress.
[2023-04-02] MEDS: SERTRALINE 50 MG TABLET 100 MG PO (22:07)
[2023-04-02] MEDS: SODIUM CHLORIDE 0.9% 500 ML 1000 ML IV ×2 (22:40→23:10)
[2023-04-02] MEDS: NALOXONE 0.4 MG/ML VIAL 0.2 MG IV (23:57)
[2023-04-03] VITALS (38 sets, daily range): BP systolic 79–133; BP diastolic 39–66; PULSE 73–99; RESP 12–31; TEMP 36.3–38.1; O2SAT 88–99
[2023-04-03] MEDS: KETOROLAC 30 MG/ML VIAL 15 MG IV (00:17)
[2023-04-03] MEDS: LIDOCAINE PATCH 1 EACH ADH..PATCH TOP (00:18)
[2023-04-03] MEDS: CEFAZOLIN 2 GM/100 ML PREMIX 100 ML IV (01:17)
[2023-04-03] MEDS: ACETAMINOPHEN 325 MG TABLET 650 MG PO ×4 (01:22→20:48)
[2023-04-03] MEDS: NALOXONE 0.4 MG/ML VIAL 0.2 MG IV (03:48)
[2023-04-03] MEDS: SODIUM CHLORIDE 0.9% 1,000 ML 1000 ML IV (04:40)
--- NOTE | 2023-04-03 05:57 | PC.NURSE ---
patient came to ICU in anticipation of the need for vasopressors. Patient alert to self and place, indicating pain to left hip. second 1000ml bolus finished. and patient has remained normotensive without vasopressor medication, and normal sinus rhythm.
--- NOTE | 2023-04-03 08:03 | CM.DPC ---
Addendum entered by Ariella White R.N. 04/03/23 15:06: Updated Maci [place], patient's niece regarding seed cone picker at noon, unable to reach Taylor, phone not working, she will let Taylor know. Addendum entered by Ariella White R.N. 04/03/23 14:42: Was able to get in touch with Rocío at [facility], she is familiar with the adult family home. This DC Workforce Services Representative had left Chen at [facility] on [address] a message asking who patient's provider was. Rocío stated that they have a nurse practitioner named Maci Cabrera, who sees patients at the facilities. Chen had mentioned that they have their own provider at the facility. Went ahead and listed her on the face to face. Faxed over face sheet, face to face, orders, H&P, over to [facility]. They will just need DC Summary and update if discharges tomorrow at time scheduled. Addendum entered by Ariella White R.N. 04/03/23 12:57: Went ahead and set up transport for tomorrow with [facility], seed cone picker at noon. Updated Chen at [facility] on [address], and she is hopeful that home health can be ordered, RN, maybe P.T. for some exercises. Will go ahead and initiate [facility], stated, she has had good luck with them as opposed to [facility]. Let Ambulance know that patient has Medicaid, confirmed in demographics. Addendum entered by Ariella White R.N. 04/03/23 12:02: Met with patient's sister, Taylor, at bedside, and DPOA. Confirmed that patient is bed bound, and that patient can return to his adult family home. Let her know that he most likely will need to go BLS, mentioned the possibility of getting a bill. She stated that patient has Medicaid, should not be getting any bills. Was unable to call [facility] to see if there are transportation benefits, secondary to them being closed on holiday. Unclear if patient is medically ready today, P.T. has discharged patient, since he is bed bound at baseline. If he is ready, will need to see if adult family home can accept today. Addendum entered by Ariella White R.N. 04/03/23 11:02: Maci called back and indicated that she and mother will be in to see patient in the next hour. Patient goes by [facility]. Found out that patient resides at [facility] on [facility]. Their phone number is: [phone]. Spoke to adult family home director, Chen. She indicated that patient is bed bound, is in a high low bed, does not transfer. Patient feeds himself in bed. Stated that she is prepared to accept patient back to their facility. Let her know that patient may be ready tomorrow, per hospitalist. Patient most likely will need to go BLS transport. Have her email address for any orders. Email address is as follows: [email or web address]. Asked Thuy to not fax facilities, P.T. is updated. Chen at the [facility] agrees that with patient's dementia, would not be able to retain or understand P.T. Addendum entered by Ariella White R.N. 04/03/23 10:30: Called patient's niece, Maci. Let her know that this DC Workforce Services Representative has attempted to reach patient's sister, and unable to do so. Updated her that patient most likely will need shelter prior to going back to the adult family home. Attempted to look up the address of the adult family home that patient is at, and unable to locate, shows private residence on [address] [facility] [address]. Updated niece that rehab facilities in [facility] do take his insurance, and will start initiating referrals. Will need P.T. notes as well. Asked MARTA Daley visitor service assistant, to start sending referrals to [facility], and [facility]. As soon as P.T. notes are in, will send. Maci will reach out to family and ask them to call this DC Workforce Services Representative. Original Note: DCP Cont: Attempted to call Taylor KLINE, left another message, have not been able to reach her. Attempting to discuss discharge plan. He did have his surgery yesterday. Patient has P.T. orders, should be working with them today. P: DCP to continue to attempt reaching DPOA, Taylor, to discuss discharge planning. Patient may need shelter, have not been able to find out any information regarding patient's adult family home of residence in [place]. Ariella White RN/Independent Living Specialist
[2023-04-03 08:34] LABS: Add Manual Diff / Slide Review NO; Basophils Absolute Auto 0 /uL (0-100); Basophils Percent Auto 0.1 % (0-2); Eosinophils Absolute Auto 0 /uL (0-450); Hematocrit 22.4 % (41-53); Hemoglobin 7.5 g/dL (13.5-17.5); Lymphocytes Absolute Auto 700 /uL (1100-4500); Lymphocytes Percent Auto 6.1 % (25-40); Mean Corpuscular HGB Conc 33.6 % (30-36); Mean Corpuscular Hemoglobin 33.3 PG (26-34); Mean Corpuscular Volume 99.1 fL (80-100); Monocytes Absolute Auto 600 /uL (0-900); Monocytes Percent Auto 5.5 % (3-14); Neutrophils Absolute Auto 9400 /uL (1500-7000); Neutrophils Percent Auto 88.3 % (50-75); Platelet Count 157 X10^3/uL (150-400); Red Blood Cell Count 2.26 X10^6/uL (4.5-5.9); Red Cell Distribution Width 16.1 % (11.6-14.8); White Blood Cell Count 10.7 X10^3/uL (4.5-11.0)
[2023-04-03 08:40] LABS: BUN Creatinine Ratio 24.7 (6-22); Blood Urea Nitrogen 18 mg/dL (9-20); Calcium 7.6 mg/dL (8.4-10.2); Carbon Dioxide 24 mmol/L (22-32); Chloride 107 mmol/L (98-107); Estimated Glomerular Filt Rate > 60 mL/min (>60); Glucose 129 mg/dL (80-110); HEMOLYSIS < 15 (0-50); Potassium 4.1 mmol/L (3.4-5.1); Sodium 137 mmol/L (137-145)
[2023-04-03] MEDS: FERROUS SULFATE 325 MG TABLET PO (09:51)
[2023-04-03] MEDS: ENOXAPARIN 40 MG/0.4 ML SYRINGE SUBCUT (09:51)
[2023-04-03] MEDS: DOCUSATE 100 MG CAPSULE PO ×2 (09:51→20:49)
[2023-04-03] MEDS: levETIRAcetam 250 MG TABLET 750 MG PO ×2 (09:52→20:49)
[2023-04-03] MEDS: GABAPENTIN 300 MG CAPSULE 600 MG PO ×2 (09:52→20:49)
[2023-04-03 10:43] LABS: MRSA (Nasal) PCR DETECTED (Not Detect)
--- NOTE | 2023-04-03 11:46 | PT-IP ANOTE ---
Received PT orders and completed chart review. product line manager spoke with pt's adult family home this AM and reports he is bed bound at baseline and does not transfer at all. OT discussed pt with hospitalist physician who agreed pt does not need skilled therapy services. Will discharge orders.
--- NOTE | 2023-04-03 14:14 | P.DS_ITS ---
History of Present Illness History of Present Illness Chief complaint: Left femoral neck fracture Discharge Providers Provider Date of admission: 04/02/23 02:41 Discharge Date: 04/04/23 Consults: 04/02/23 03:01 Consult to Physician Routine Comment: Consulting Provider: Jamia Hickman Reason for consultation: Left femoral neck fracture Has provider been notified: Yes 04/02/23 21:59 Consult to Discharge Planning Routine Comment: Consult to Physical Therapy Evaluate & Treat Comment: wbat , php x 6 wks, abd pillow when in bed Physician Instructions: Evaluate and Treat 04/03/23 10:21 Consult to Occupational Therapy Evaluate & Treat Comment: Physician Instructions: Evaluate and treat Discharge provider: Maci Ferrari PA-C Summary Hospital Course Discharge Diagnosis: Left femoral neck fracture, S/p Left hip hemiarthroplasty Hospital Course: Operative Date/Time/Diagnoses Date of procedure: 04/02/23 Time of procedure: 18:30 Pre-op diagnosis: Left femoral neck fracture displaced Dementia Left hip arthritis Post-op diagnosis: same Procedure & Clinicians Procedure: Hemiarthroplasty for left femoral neck fracture fixation with endoprosthesis.? CPT code 85003 Same procedure as scheduled: Yes Indications: Patient is a 77-year-old male with a history of seizures and dementia who lives in a assisted that had a fall.? He is only able to give us very limited information but his sister is power of real estate attorney and was able to provide additional information.? After the patient's fall he was unable to weightbear he was brought to [facility] and found to have a displaced left femoral neck fracture.? He has underlying severe bilateral hip arthritis.? He was an ambulator with a walker and is limited by his dementia and history of seizures and severe hip arthritis.? He was indicated for hemiarthroplasty to treat his displaced femoral neck fracture and allow mobilization.? The risks and benefits of the procedure have been discussed with the patient and separately with the POA on the telephone and they were given the opportunity to ask questions.? The risks of surgery include but are not limited to infection, fracture, dislocation, persistence of pain, damage to nerves and blood vessels, DVT, PE, cardiopulmonary complications and .? The power of real estate attorney expressed a thorough understanding of the risks and benefits of surgery and has elected to proceed.? Telephone Consent was signed and witnessed During the operation, the services of a physician dental assistant were medically indicated and necessary to provide the exposure of the operative site for the surgical procedure and to maintain the limb in a proper position to carry out the operation safely and efficiently.? Without a qualified parts room assistant being present this would extended the operative procedure and made the procedure technically more difficult to perform. Surgeon: Jamia Hickman Infant Lead Teacher: Shannan Rollins Yes if Unassisted: Yes Anesthesia Type: General and Local Operative Notes Findings: Displaced femoral neck fracture severe hip arthritic changes Closure Type: primary Specimen(s): none sent Prosthetic devices, grafts, tissues, transplants, or devices: Estevez and Nephew Synergy unipolar femoral component cobalt chromium size 12 Estevez and Nephew tandem unipolar +4 taper sleeve and tandem unipolar cobalt chromium head 46 mm Distal post centralizer 10 mm small bone plug restrictor Estimated Blood Loss (mL): 200 Blood products transfused: none Tourniquet time (min): 0 Exam Vital Signs (past 8 hours): - 04/03/23 06:16 04/03/23 06:16 04/03/23 06:20 Temperature Pulse Rate 93 H 93 H Respiratory Rate 17 22 Blood Pressure 105/57 L Pulse Oximetry 93 96 Oxygen Delivery Method Oxygen Flow Rate 1 1 1 04/03/23 06:30 04/03/23 06:30 04/03/23 06:45 Temperature Pulse Rate 96 H 97 H Respiratory Rate 15 17 Blood Pressure 93/51 L Pulse Oximetry 96 92 Oxygen Delivery Method Oxygen Flow Rate 04/03/23 06:45 04/03/23 07:00 04/03/23 07:00 Temperature Pulse Rate 99 H Respiratory Rate 27 H Blood Pressure 99/56 L 95/64 Pulse Oximetry 92 Oxygen Delivery Method Oxygen Flow Rate 04/03/23 07:16 04/03/23 07:16 04/03/23 07:30 Temperature Pulse Rate 99 H Respiratory Rate 25 H Blood Pressure 83/53 L 90/51 L Pulse Oximetry Oxygen Delivery Method Oxygen Flow Rate 04/03/23 07:30 04/03/23 07:45 04/03/23 07:45 Temperature 97.4 F L Pulse Rate 93 H 92 H Respiratory Rate 18 18 Blood Pressure 89/53 L Pulse Oximetry 90 L 93 Oxygen Delivery Method Oxygen Flow Rate 04/03/23 08:00 04/03/23 08:01 04/03/23 08:01 Temperature Pulse Rate 90 90 Respiratory Rate 22 19 Blood Pressure 98/53 L Pulse Oximetry 92 93 Oxygen Delivery Method Oxygen Flow Rate 04/03/23 07:00 04/03/23 08:30 04/03/23 09:12 Temperature Pulse Rate 99 H 96 H Respiratory Rate 26 H 17 Blood Pressure Pulse Oximetry 97 96 99 Oxygen Delivery Method Nasal Cannula Oxygen Flow Rate 2 04/03/23 09:30 04/03/23 10:00 04/03/23 10:07 Temperature Pulse Rate 97 H 97 H 98 H Respiratory Rate 21 22 31 H Blood Pressure Pulse Oximetry 94 Oxygen Delivery Method Oxygen Flow Rate 04/03/23 10:07 04/03/23 12:00 Temperature 99.2 F Pulse Rate 73 Respiratory Rate 16 Blood Pressure 97/55 L 97/54 L Pulse Oximetry 94 Oxygen Delivery Method Oxygen Flow Rate Fraction of Inspired Oxygen 24 SaO2/FiO2 Ratio 400 Oxygen Delivery Method Nasal Cannula Oxygen Flow Rate 2 Narrative Exam Narrative: Pleasant, demented 77-year-old male. Awake, alert, oriented to self. Able to answer simple questions. Left hip intraoperative dressing clean, dry, intact. Strength and sensation intact to right lower extremity. Strength 0/5 to left dorsiflexion, 4/5 to plantar flexion. Objective Labs 04/03/23 08:00 04/03/23 08:00 Labs: Laboratory Results - last 24 hr 04/03/23 04/03/23 04/03/23 06:15 08:00 08:00 WBC 10.7 D RBC 2.26 L Hgb 7.5 L Hct 22.4 L MCV 99.1 MCH 33.3 MCHC 33.6 RDW 16.1 H Plt Count 157 Neut % (Auto) 88.3 H D Lymph % (Auto) 6.1 L D [place] % (Auto) 5.5 Eos % (Auto) 0.0 L Baso % (Auto) 0.1 Neut # (Auto) 9400 H Lymph # (Auto) 700 L [place] # (Auto) 600 Eos # (Auto) 0 Baso # (Auto) 0 Sodium 137 Potassium 4.1 Chloride 107 Carbon Dioxide 24 BUN 18 Creatinine 0.73 Estimated GFR > 60 BUN/Creatinine Ratio 24.7 H Glucose 129 H Calcium 7.6 L Nasal Screen MRSA (PCR) Detected H [facility] Medical History Alzheimer's dementia Anxiety Chest pain Depression Easy bruisability Epilepsy Heart burn Neck pain Numbness and tingling Osteoarthritis Pain RBBB (right bundle branch block) Seizures TIA (transient ischemic attack) Surgical History No history of previous surgery Social History household members: family Smoking Status: Smoker, status unknown alcohol intake: current Discharge Assessment & Plan Assessment and Plan Assessment: Patient's postoperative course is complicated by Alzheimer's dementia and bed- bound status at baseline. His pain has been well controlled. Plan of Treatment: Since patient is bed-bound at baseline, he has not worked with physical therapy. His pain has been well controlled with medication. He will return to his adult family tomorrow, ambulance transfer scheduled for tomorrow at noon. He will fo llow up with Orthopedics 2 weeks after surgery for staple removal. Discharge Plan Discharge orders & Medications Prescriptions: No Action sennosides [senna] 8.6 mg Tablet 8.6 mg PO BID atorvastatin 20 mg Tablet 20 mg PO BEDTIME polyethylene glycol 3350 [Miralax] 17 gram Powder In Packet 17 g PO BID prazosin 1 mg Capsule 1 mg PO BEDTIME sertraline 100 mg Tablet 100 mg PO BEDTIME melatonin 3 mg Tablet 6 mg PO BEDTIME aspirin 81 mg Tablet,Delayed Release (Dr/Ec) 81 mg PO DAILY acetaminophen 500 mg Tablet 1,000 mg PO TID gabapentin 300 mg Capsule 600 mg PO BID gabapentin 300 mg Capsule 300 mg PO DAILY Rx Instructions: At noon omeprazole 20 mg Capsule,Delayed Release(Dr/Ec) 20 mg PO DAILY ferrous sulfate 325 mg (65 mg iron) Tablet,Delayed Release (Dr/Ec) 325 mg PO DAILY cholecalciferol (vitamin D3) 25 mcg (1,000 unit) tablet 1,000 unit PO DAILY diclofenac sodium [Arthritis Pain (diclofenac)] 1 % Gel 4 g TOPICAL QID Rx Instructions: apply to single knee, ankle, foot; for foot includes sole/toes/top of foot levetiracetam 750 mg Tablet 750 mg PO BID metoprolol tartrate 25 mg Tablet 12.5 mg PO BID Follow up/Referrals: Jamia Hickman MD [Physician] - 2 Weeks (Follow up 2 weeks after surgery for staple removal.) Diet/Activity/Treatments Activity: Weightbear as tolerated with assistive devices. Abduction pillow while in bed. Posterior hip precautions for 6 weeks. Other treatments: Lovenox 40 mg subcutaneous for 4 weeks for DVT prophylaxis. Follow-up in 2 weeks for staple removal. Skin/Wound/Dressing Care Report to your healthcare provider any signs of infection, such as:: chills, fever, night sweats, unusual drainage and unusual redness Dressing: May shower with Aquacel dressing but no soaking incision. Change as needed. Visit Report/Discharge Packet Stand Alone Forms: Patient Portal/API, Surgery Discharge Quality VTE Deep Vein Thrombosis/Pulmonary Embolism Present on Admission: No
--- NOTE | 2023-04-03 14:21 | OT.IPNOTE ---
Received OT orders and completed chart review. clinical case manager spoke with pt's adult family home this AM and reports he is bed bound at baseline and does not transfer at all. OT discussed pt with hospitalist physician who agreed pt does not need skilled therapy services. Will discharge orders.
--- NOTE | 2023-04-03 14:24 | P.PN_ITS ---
Subjective Subjective Date Patient Seen: 04/03/23 Time Patient Seen: 14:00 Interval history: Patient is lying comfortably in bed this afternoon. He complains of mild pain to the left hip and states that he broke it. He is able to tell me his name and date. However, he does not know where he is. Denies numbness and tingling to the left lower extremity. Denies chest pain, shortness of breath. Exam Vital Signs (past 8 hours): - 04/03/23 06:30 04/03/23 06:30 04/03/23 06:45 Temperature Pulse Rate 96 H 97 H Respiratory Rate 15 17 Blood Pressure 93/51 L Pulse Oximetry 96 92 Oxygen Delivery Method Oxygen Flow Rate 04/03/23 06:45 04/03/23 07:00 04/03/23 07:00 Temperature Pulse Rate 99 H Respiratory Rate 27 H Blood Pressure 99/56 L 95/64 Pulse Oximetry 92 Oxygen Delivery Method Oxygen Flow Rate 04/03/23 07:16 04/03/23 07:16 04/03/23 07:30 Temperature Pulse Rate 99 H Respiratory Rate 25 H Blood Pressure 83/53 L 90/51 L Pulse Oximetry Oxygen Delivery Method Oxygen Flow Rate 04/03/23 07:30 04/03/23 07:45 04/03/23 07:45 Temperature 97.4 F L Pulse Rate 93 H 92 H Respiratory Rate 18 18 Blood Pressure 89/53 L Pulse Oximetry 90 L 93 Oxygen Delivery Method Oxygen Flow Rate 04/03/23 08:00 04/03/23 08:01 04/03/23 08:01 Temperature Pulse Rate 90 90 Respiratory Rate 22 19 Blood Pressure 98/53 L Pulse Oximetry 92 93 Oxygen Delivery Method Oxygen Flow Rate 04/03/23 07:00 04/03/23 08:30 04/03/23 09:12 Temperature Pulse Rate 99 H 96 H Respiratory Rate 26 H 17 Blood Pressure Pulse Oximetry 97 96 99 Oxygen Delivery Method Nasal Cannula Oxygen Flow Rate 2 04/03/23 09:30 04/03/23 10:00 04/03/23 10:07 Temperature Pulse Rate 97 H 97 H 98 H Respiratory Rate 21 22 31 H Blood Pressure Pulse Oximetry 94 Oxygen Delivery Method Oxygen Flow Rate 04/03/23 10:07 04/03/23 12:00 Temperature 99.2 F Pulse Rate 73 Respiratory Rate 16 Blood Pressure 97/55 L 97/54 L Pulse Oximetry 94 Oxygen Delivery Method Oxygen Flow Rate Fraction of Inspired Oxygen 24 SaO2/FiO2 Ratio 400 Oxygen Delivery Method Nasal Cannula Oxygen Flow Rate 2 Narrative Exam Narrative: Pleasant, demented 77-year-old male. Awake, alert, oriented to self. Able to answer simple questions. Left hip intraoperative dressing clean, dry, intact. Strength and sensation intact to right lower extremity. Strength 0/5 to left dorsiflexion, 4/5 to plantar flexion. Flexion contractures to bilateral hands. Objective Labs 04/03/23 08:00 04/03/23 08:00 Labs: Laboratory Results - last 24 hr 04/03/23 04/03/23 04/03/23 06:15 08:00 08:00 WBC 10.7 D RBC 2.26 L Hgb 7.5 L Hct 22.4 L MCV 99.1 MCH 33.3 MCHC 33.6 RDW 16.1 H Plt Count 157 Neut % (Auto) 88.3 H D Lymph % (Auto) 6.1 L D [place] % (Auto) 5.5 Eos % (Auto) 0.0 L Baso % (Auto) 0.1 Neut # (Auto) 9400 H Lymph # (Auto) 700 L [place] # (Auto) 600 Eos # (Auto) 0 Baso # (Auto) 0 Sodium 137 Potassium 4.1 Chloride 107 Carbon Dioxide 24 BUN 18 Creatinine 0.73 Estimated GFR > 60 BUN/Creatinine Ratio 24.7 H Glucose 129 H Calcium 7.6 L Nasal Screen MRSA (PCR) Detected H PFSH Medical History Alzheimer's dementia Anxiety Chest pain Depression Easy bruisability Epilepsy Heart burn Neck pain Numbness and tingling Osteoarthritis Pain RBBB (right bundle branch block) Seizures TIA (transient ischemic attack) Surgical History No history of previous surgery Social History household members: family Smoking Status: Smoker, status unknown alcohol intake: current Assessment & Plan Post-op Postoperative Procedures: Procedures Operation Date: 04/02/23 14:00 Actual Procedure Side Surgeon p Hip Hemiarthroplasty Gurpreet Jamia Hickman MD Postoperative day: 1 Postoperative status: doing well Postoperative status narrative: Patient's postoperative course is complicated by Alzheimer's dementia and bed-bound status at baseline. His pain has been well controlled. Postoperative plan: routine post-op care Postoperative plan narrative: Since patient is bed-bound at baseline, he has not worked with physical therapy. His pain has been well controlled with medication. He will return to his adult family tomorrow, ambulance transfer scheduled for tomorrow at noon. He will follow up with Orthopedics 2 weeks after surgery for staple removal. Quality VTE Deep Vein Thrombosis/Pulmonary Embolism Present on Admission: No
--- NOTE | 2023-04-03 14:49 | P.PN_ITS ---
Subjective Subjective Interval history: 77 M admitted from a jail setting after a fall with a hip fracture. Now s/p repair, is bed bound at baseline per report. Complains of tightness and deep pain just above his knee, improved mildly with pain medication. No nausea or vomiting, no chest pain or shortness of breath. Exam Vital Signs (past 8 hours): - 04/03/23 07:00 04/03/23 07:00 04/03/23 07:16 Temperature Pulse Rate 99 H Respiratory Rate 27 H Blood Pressure 95/64 83/53 L Pulse Oximetry 92 Oxygen Delivery Method Oxygen Flow Rate 04/03/23 07:16 04/03/23 07:30 04/03/23 07:30 Temperature Pulse Rate 99 H 93 H Respiratory Rate 25 H 18 Blood Pressure 90/51 L Pulse Oximetry 90 L Oxygen Delivery Method Oxygen Flow Rate 04/03/23 07:45 04/03/23 07:45 04/03/23 08:00 Temperature 97.4 F L Pulse Rate 92 H 90 Respiratory Rate 18 22 Blood Pressure 89/53 L Pulse Oximetry 93 92 Oxygen Delivery Method Oxygen Flow Rate 04/03/23 08:01 04/03/23 08:01 04/03/23 07:00 Temperature Pulse Rate 90 Respiratory Rate 19 Blood Pressure 98/53 L Pulse Oximetry 93 97 Oxygen Delivery Method Nasal Cannula Oxygen Flow Rate 2 04/03/23 08:30 04/03/23 09:12 04/03/23 09:30 Temperature Pulse Rate 99 H 96 H 97 H Respiratory Rate 26 H 17 21 Blood Pressure Pulse Oximetry 96 99 94 Oxygen Delivery Method Oxygen Flow Rate 04/03/23 10:00 04/03/23 10:07 04/03/23 10:07 Temperature Pulse Rate 97 H 98 H Respiratory Rate 22 31 H Blood Pressure 97/55 L Pulse Oximetry Oxygen Delivery Method Oxygen Flow Rate 04/03/23 12:00 Temperature 99.2 F Pulse Rate 73 Respiratory Rate 16 Blood Pressure 97/54 L Pulse Oximetry 94 Oxygen Delivery Method Oxygen Flow Rate Fraction of Inspired Oxygen 24 SaO2/FiO2 Ratio 400 Oxygen Delivery Method Nasal Cannula Oxygen Flow Rate 2 Narrative Exam Narrative: General: Patient is a elderly gentleman, in n oacute distress HEENT: Normocephalic, atraumatic,MMM Chest: Normal AP diameter and contour without kyphoscoliosis, Equal chest rise without nasal flaring, retractions, tachypneic or labored breathing. Lungs: Auscultation of all lung rudolph are clear without adventitious sounds, wheezes, rhonchi, or rales. Cardio: regular rate and rhythm without murmur, rubs, or gallops, no carotid bruit, no cardiac pulsations present. Abdomen: S NT ND Musculoskeletal: Significant muscle wasting throughout Skin: Warm dry and intact without rashes, ulcerations or petechiae. Neuro: Alert and orientated to self. sensation to touch intact, no gross deficits noted of cranial nerves. Psych: Patient is pleasant, able to follow commands. Objective Labs 04/03/23 08:00 04/03/23 08:00 Labs: Laboratory Results - last 24 hr 04/03/23 04/03/23 04/03/23 06:15 08:00 08:00 WBC 10.7 D RBC 2.26 L Hgb 7.5 L Hct 22.4 L MCV 99.1 MCH 33.3 MCHC 33.6 RDW 16.1 H Plt Count 157 Neut % (Auto) 88.3 H D Lymph % (Auto) 6.1 L D [place] % (Auto) 5.5 Eos % (Auto) 0.0 L Baso % (Auto) 0.1 Neut # (Auto) 9400 H Lymph # (Auto) 700 L [place] # (Auto) 600 Eos # (Auto) 0 Baso # (Auto) 0 Sodium 137 Potassium 4.1 Chloride 107 Carbon Dioxide 24 BUN 18 Creatinine 0.73 Estimated GFR > 60 BUN/Creatinine Ratio 24.7 H Glucose 129 H Calcium 7.6 L Nasal Screen MRSA (PCR) Detected H PFSH Medical History Alzheimer's dementia Anxiety Chest pain Depression Easy bruisability Epilepsy Heart burn Neck pain Numbness and tingling Osteoarthritis Pain RBBB (right bundle branch block) Seizures TIA (transient ischemic attack) Surgical History No history of previous surgery Social History household members: family Smoking Status: Smoker, status unknown alcohol intake: current Assessment & Plan Assessment & Plan narrative: Sona Meza is a 77-year-old male with a past medical history of seizure disorder, history of TIA, RTBBB Alzheimer's dementia, HDL, iron-deficiency, GERD, HTN who resides at a facility on [facility], was brought into the ED after rolling out of bed landing on the floor fracturing left femur. Fall from bed, resulting in pathologic left femoral neck fracture, acute, present on admission * s/p repair with orthopedic surgery * patient bedbound at baseline * mildly hypotensive overnight after surgery, continue to monitor BP today * likely discharge back to jail tomorrow with continued outpatient follow up with orthopedic surgery. Seizure disorder, chronic, present on admission * Continue Keppra * Seizure precautions Alzheimer's dementia, chronic, present on admission * Limit patient's stimulation & agitation as much as possible * Fall precautions * Continue sertraline, prazosin Hypertension, essential, chronic, present on admission * Hold metoprolol as BP is soft at this time 107/56 Hyperlipidemia, chronic, present on admission * Continue lipitor. Osteoarthritis, chronic, present on admission * Continue gabapentin GERD, chronic, present on admission * Hold omeprazole till after surgery Iron-deficiency anemia, chronic, present on admission * H&H * Hold ferrous sulfate till after surgery Code status:Full- unable to verify at this time, nursing will contact facility on days to verify advanced directive. Surrogate decision maker: Sister Mustapha hughes DVT/VTE prophylaxis: Holding medication due to surgery, right SCD only Disposition: Patient admitted to acute care for left femur fracture repair, expected length of stay to exceed 2 midnights. Will likely return to jail tomorrow if medically stable. Quality VTE Deep Vein Thrombosis/Pulmonary Embolism Present on Admission: No
[2023-04-03] MEDS: methocarbamoL 500 MG TABLET PO (16:00)
[2023-04-03] MEDS: OXYCODONE IR 10 MG TABLET PO (16:00)
--- NOTE | 2023-04-03 16:55 | PC.NURSE ---
pt transferred to room 209, hip precautions, bed alarm, call light in reach. pt only A&Ox1. cornelia patent and intact.
[2023-04-03] MEDS: SENNOSIDES 8.6 MG TABLET 17.2 MG PO (20:50)
[2023-04-03] MEDS: SERTRALINE 50 MG TABLET 100 MG PO (20:50)
[2023-04-03 21:21] LABS: Hemoglobin 7.1 g/dL (13.5-17.5)
--- NOTE | 2023-04-03 23:00 | DI.RAD.S_ITS ---
PROCEDURE: XR CHEST 1V INDICATIONS: fever, poss asp TECHNIQUE: One view of the chest was acquired. COMPARISON: [facility], , XR CHEST 1V, 04/02/2023, 2:57. FINDINGS: Surgical changes and devices: Postsurgical changes partially visualized within the lower cervical spine. Lungs and pleura: Lungs are clear. No pleural effusions or pneumothorax. Mediastinum: Mediastinal contours appear normal. Heart size is normal. Bones and chest wall: No suspicious bony lesions. Overlying soft tissues appear unremarkable. IMPRESSION: 1. No acute cardiopulmonary disease. Dictated by: Bryan Valles M.D. on 04/03/2023 at 23:36 Approved by: Bryan Valles M.D. on 04/03/2023 at 23:36
[2023-04-03] MEDS: SODIUM CHLORIDE 0.9% 500 ML 1000 ML IV (23:45)
[2023-04-03] MEDS: ACETAMINOPHEN 325 MG TABLET PO (23:45)
[2023-04-03] MEDS: SODIUM CHLORIDE 0.9% 1,000 ML 84 ML IV (23:46)
[2023-04-04] VITALS (16 sets, daily range): BP systolic 87–118; BP diastolic 42–67; PULSE 84–104; RESP 16–24; TEMP 36.6–37.5; O2SAT 93–99
[2023-04-04 05:47] LABS: BUN Creatinine Ratio 25.3 (6-22); Blood Urea Nitrogen 21 mg/dL (9-20); Calcium 7.2 mg/dL (8.4-10.2); Carbon Dioxide 29 mmol/L (22-32); Chloride 105 mmol/L (98-107); Estimated Glomerular Filt Rate > 60 mL/min (>60); Glucose 105 mg/dL (80-110); HEMOLYSIS < 15 (0-50); Potassium 3.9 mmol/L (3.4-5.1); Sodium 136 mmol/L (137-145)
[2023-04-04 06:19] LABS: Basophils Absolute Auto 0 /uL (0-100); Basophils Percent Auto 0.1 % (0-2); Eosinophils Absolute Auto 0 /uL (0-450); Eosinophils Percent Auto 0.4 % (2-4); Lymphocytes Absolute Auto 1700 /uL (1100-4500); Lymphocytes Percent Auto 23.1 % (25-40); Mean Corpuscular HGB Conc 34.4 % (30-36); Mean Corpuscular Hemoglobin 33.9 PG (26-34); Mean Corpuscular Volume 98.6 fL (80-100); Monocytes Absolute Auto 800 /uL (0-900); Neutrophils Absolute Auto 4700 /uL (1500-7000); Neutrophils Percent Auto 65.4 % (50-75); Platelet Count 152 X10^3/uL (150-400); Red Blood Cell Count 1.86 X10^6/uL (4.5-5.9); Red Cell Distribution Width 16.3 % (11.6-14.8); White Blood Cell Count 7.2 X10^3/uL (4.5-11.0)
[2023-04-04 06:24] LABS: Add Manual Diff / Slide Review SLIDE REVIEW; Hematocrit 18.3 % (41-53); Hemoglobin 6.3 g/dL (13.5-17.5)
[2023-04-04 07:03] LABS: Anisocytosis 1+
--- NOTE | 2023-04-04 07:56 | PC.NURSE ---
Spoke with patient to inform about medical need for blood transfusion @3912, pt agreed at this time. Reapproached pt to inform it was time for nursing to administer blood and pt refused after multiple attempts by this nurse. Pt verbalized understanding the potential result of not receiving blood, pt states, I will . Pt stated, Now, get out. Leave me alone.
--- NOTE | 2023-04-04 07:56 | PC.NURSE ---
Notified by Lab that 2 Units PRBC's are ready for infusion. Consent authorized via telephone call with RAISA Roberts (sister) at [phone]. Spoke with Pt about blood tranfusion-Pt refused transfusion, refused physical assessment, refused to be touched or moved. Discussed need for blood transfusion secondary to H/H of 04/02 and that it would be needed to help the Pt get better-Pt stated I'm not getting a blood transfusion, leave me alone don't touch me - when talked with about not getting better without blood transfusion Pt stated then I won't get better. Pt also stated that i will . Spoke with NOC RN Krzysztof and she came to speak to Pt as well and that conversation with quotes has been documented. Notified Dr. Castillo that Pt had refused blood, assessment, being moved or touched, and that his MAP was 62. No new orders at this time.
[2023-04-04] MEDS: levETIRAcetam 250 MG TABLET 750 MG PO ×2 (08:41→21:08)
[2023-04-04] MEDS: DOCUSATE 100 MG CAPSULE PO (08:41)
[2023-04-04] MEDS: GABAPENTIN 300 MG CAPSULE 600 MG PO ×2 (08:41→21:08)
[2023-04-04] MEDS: ACETAMINOPHEN 325 MG TABLET 650 MG PO (08:41)
[2023-04-04] MEDS: FERROUS SULFATE 325 MG TABLET PO (08:52)
--- NOTE | 2023-04-04 08:54 | PC.NURSE ---
Dr. Castillo in to see Pt and Pt agreed to transfusion at this time. 1st Unit PRBC's infusing at this time.
--- NOTE | 2023-04-04 09:06 | CM.DPNOTE ---
Spoke with Jeni at Ambulance to cancel BLS for today at noon. Thuy Chen, [facility] Assist.
--- NOTE | 2023-04-04 09:14 | CM.DPNOTE ---
Discharge Planning Note: Nurse Stephanie reports patient is refusing care and refusing for her to assess patient. She states Dr Castillo did convince the patient to receive blood this morning since is H&H is very low. Dr Castillo is cancelling discharge for today. Notified Maribeth on [facility] in [facility], that patient will not be discharging today. Thuy contacted [facility] and cancelled transport for today. [facility] called this morning, saying that they do not accept patient's [facility] insurance. Thuy is contacting [facility] to find out when they can start. Potentially patient could discharge tomorrow. Plan: Follow closely for possible discharge tomorrow and stay in touch with Maribeth on [facility] ([facility]). Schedule BLS when know patient is discharging. Rhonda Odonnell RN/DCP
--- NOTE | 2023-04-04 12:26 | PC.NURSE ---
Pt visiting with POA -family at the bedside. Spoke with Pt's sister Taylor about Pt's very clear wishes to and to not continue with aggressive tx. Asked POA about whether she had spoken with her brother about his Code Status and the continued care he wishes to receive. POA now talking with Pt and was observed to agree to do not resucitate plan and said he was ready to . Spoke with Dr. Castillo and provided POLST form and Dr. Castillo stated he would be coming to speak with POA shortly.
[2023-04-04] MEDS: LORazepam 0.5 MG TABLET PO ×2 (13:00→21:30)
--- NOTE | 2023-04-04 14:20 | P.PN_ITS ---
Subjective Subjective Interval history: Patient with worsening anemia overnight. Hg to 6 this morning. Was ordered for 2U PRBC but had pulled out IV lines. He then refused transfusion this morning saying he wanted to be done with everything. When I spoke with him in the morning he was agreeable, but also removed his IV line during the transfusion. I spoke with the patient and POA at bedside, and he does wish to continue full care at this time. He seems to be improving after the transfusion today. He has had no obvious melena, and compartments are soft, cannot identify the source of bleeding at this time. Exam Vital Signs (past 8 hours): - 04/04/23 08:00 04/04/23 08:20 04/04/23 08:40 Temperature 98.1 F 98.1 F 99.5 F Pulse Rate 96 H 95 H 96 H Respiratory Rate 17 17 17 Blood Pressure 93/52 L 93/52 L 89/62 L Pulse Oximetry 97 Oxygen Delivery Method Oxygen Flow Rate 2 04/04/23 08:00 04/04/23 11:57 04/04/23 12:03 Temperature 99.4 F 99.4 F Pulse Rate 84 84 Respiratory Rate 16 16 Blood Pressure 94/53 L 94/53 L Pulse Oximetry 97 Oxygen Delivery Method Nasal Cannula Oxygen Flow Rate 2 04/04/23 12:04 04/04/23 12:06 04/04/23 12:31 Temperature 99.4 F 99.4 F 99 F Pulse Rate 84 84 92 H Respiratory Rate 16 16 16 Blood Pressure 94/53 L 94/53 L 105/60 Pulse Oximetry Oxygen Delivery Method Oxygen Flow Rate 04/04/23 13:55 Temperature 99.1 F Pulse Rate 87 Respiratory Rate 17 Blood Pressure 98/42 L Pulse Oximetry 99 Oxygen Delivery Method Oxygen Flow Rate 2 Fraction of Inspired Oxygen 24 SaO2/FiO2 Ratio 400 Oxygen Delivery Method Nasal Cannula Oxygen Flow Rate 2 Narrative Exam Narrative: General: Patient is a elderly gentleman, in n oacute distress HEENT: Normocephalic, atraumatic,MMM Chest: Normal AP diameter and contour without kyphoscoliosis, Equal chest rise without nasal flaring, retractions, tachypneic or labored breathing. Lungs: Auscultation of all lung rudolph are clear without adventitious sounds, wheezes, rhonchi, or rales. Cardio: regular rate and rhythm without murmur, rubs, or gallops, no carotid bruit, no cardiac pulsations present. Abdomen: S NT ND Musculoskeletal: Significant muscle wasting throughout Skin: Warm dry and intact without rashes, ulcerations or petechiae. Neuro: Alert and orientated to self. sensation to touch intact, no gross deficits noted of cranial nerves. Psych: Patient is pleasant, able to follow commands. Objective Labs 04/04/23 05:00 04/04/23 05:00 Labs: Laboratory Results - last 24 hr 04/03/23 04/04/23 04/04/23 21:05 05:00 05:00 WBC 7.2 RBC 1.86 L Hgb 7.1 L 6.3 L* Hct 21.0 L 18.3 L* MCV 98.6 MCH 33.9 MCHC 34.4 RDW 16.3 H Plt Count 152 Neut % (Auto) 65.4 D Lymph % (Auto) 23.1 L [place] % (Auto) 11.0 Eos % (Auto) 0.4 L Baso % (Auto) 0.1 Neut # (Auto) 4700 Lymph # (Auto) 1700 [place] # (Auto) 800 Eos # (Auto) 0 Baso # (Auto) 0 RBC Morphology See below Anisocytosis 1+ H Sodium 136 L Potassium 3.9 Chloride 105 Carbon Dioxide 29 BUN 21 H Creatinine 0.83 Estimated GFR > 60 BUN/Creatinine Ratio 25.3 H Glucose 105 Calcium 7.2 L Blood Type Antibody Screen Crossmatch 04/04/23 05:00 WBC RBC Hgb Hct MCV MCH MCHC RDW Plt Count Neut % (Auto) Lymph % (Auto) [place] % (Auto) Eos % (Auto) Baso % (Auto) Neut # (Auto) Lymph # (Auto) [place] # (Auto) Eos # (Auto) Baso # (Auto) RBC Morphology Anisocytosis Sodium Potassium Chloride Carbon Dioxide BUN Creatinine Estimated GFR BUN/Creatinine Ratio Glucose Calcium Blood Type B Positive Antibody Screen Negative Crossmatch See Detail [facility] Medical History Alzheimer's dementia Anxiety Chest pain Depression Easy bruisability Epilepsy Heart burn Neck pain Numbness and tingling Osteoarthritis Pain RBBB (right bundle branch block) Seizures TIA (transient ischemic attack) Surgical History No history of previous surgery Social History household members: family Smoking Status: Smoker, status unknown alcohol intake: current Assessment & Plan Assessment & Plan narrative: Sona Meza is a 77-year-old male with a past medical history of seizure disorder, history of TIA, RTBBB Alzheimer's dementia, HDL, iron-deficiency, GERD, HTN who resides at a facility on [facility], was brought into the ED after rolling out of bed landing on the floor fracturing left femur. #Fall from bed, resulting in pathologic left femoral neck fracture, acute, present on admission * s/p repair with orthopedic surgery * patient bedbound at baseline * mildly hypotensive overnight after surgery, probably due to anemia * likely discharge back to nursing home when anemia stabilized * consider CT as noted below. #Acute blood loss anemia, with chronic iron deficiency anemia - presume acute blood loss secondary to surgical procedure, also has received close to 5L of fluids this admission so may be in part dilutional. There is no obvious GI bleeding or bruising on exam, dressing is dry. - if h/h continues to downtrend, consider non-contrast CT to evaluate for possible hematoma given difficult pain control. #Seizure disorder, chronic, present on admission * Continue Keppra * Seizure precautions #Alzheimer's dementia, chronic, present on admission * Limit patient's stimulation & agitation as much as possible * Fall precautions * Continue sertraline, prazosin #Hypertension, essential, chronic, present on admission * Hold metoprolol as BP is soft at this time 107/56 #Hyperlipidemia, chronic, present on admission * Continue lipitor. #Osteoarthritis, chronic, present on admission * Continue gabapentin #GERD, chronic, present on admission * Hold omeprazole till after surgery #advanced care planning - I spent 17 minutes involved in the advanced care planning of this patient including discussion with the patient and POA at bedside. Updating all on his current status post surgically and the plan of care. Patient is wanting to continue full care, though he has notable dementia and changes his mind frequ ently at the moment, however I was able to deduce that his current pain and discomfort are making him more miserable and that he doesn't want to live with discomfort like this.Patient and POA were in agreement to work on pain control, possibly readdress code status but he seemed quite clear that if his pain is improved he would want full care. #chronic immobility due to prior traumatic injuries. Code status:Full as discussed with patient and POA at bedside today. Surrogate decision maker: Sister Mustapha hughes DVT/VTE prophylaxis: Holding medication due to surgery, right SCD only Disposition: Patient admitted to acute care for left femur fracture repair, expected length of stay to exceed 2 midnights. Will likely return to nursing home tomorrow if medically stable. Quality VTE Deep Vein Thrombosis/Pulmonary Embolism Present on Admission: No
[2023-04-04] MEDS: SERTRALINE 50 MG TABLET 100 MG PO (21:09)
[2023-04-04] MEDS: LIDOCAINE PATCH 1 EACH ADH..PATCH TOP (21:11)
[2023-04-04 21:25] LABS: Hemoglobin 9.2 g/dL (13.5-17.5)
[2023-04-04 21:29] LABS: Hematocrit 26.5 % (41-53)
[2023-04-05] VITALS (9 sets, daily range): BP systolic 99–131; BP diastolic 52–66; PULSE 82–90; RESP 16–20; TEMP 36.7–37.5; O2SAT 93–99
[2023-04-05 06:52] LABS: BUN Creatinine Ratio 23.5 (6-22); Blood Urea Nitrogen 16 mg/dL (9-20); Calcium 8.1 mg/dL (8.4-10.2); Carbon Dioxide 30 mmol/L (22-32); Chloride 101 mmol/L (98-107); Estimated Glomerular Filt Rate > 60 mL/min (>60); Glucose 96 mg/dL (80-110); HEMOLYSIS < 15 (0-50); Potassium 3.8 mmol/L (3.4-5.1); Sodium 134 mmol/L (137-145)
[2023-04-05 07:36] LABS: Add Manual Diff / Slide Review NO; Basophils Absolute Auto 100 /uL (0-100); Basophils Percent Auto 0.8 % (0-2); Eosinophils Absolute Auto 200 /uL (0-450); Eosinophils Percent Auto 1.4 % (2-4); Hematocrit 31.9 % (41-53); Hemoglobin 10.8 g/dL (13.5-17.5); Lymphocytes Absolute Auto 1700 /uL (1100-4500); Mean Corpuscular HGB Conc 33.8 % (30-36); Mean Corpuscular Hemoglobin 32.7 PG (26-34); Mean Corpuscular Volume 96.7 fL (80-100); Monocytes Absolute Auto 1100 /uL (0-900); Monocytes Percent Auto 10.7 % (3-14); Neutrophils Absolute Auto 7500 /uL (1500-7000); Neutrophils Percent Auto 71.1 % (50-75); Platelet Count 195 X10^3/uL (150-400); Red Cell Distribution Width 18.4 % (11.6-14.8); White Blood Cell Count 10.5 X10^3/uL (4.5-11.0)
--- NOTE | 2023-04-05 08:19 | P.PN_ITS ---
Subjective Subjective Date Patient Seen: 04/05/23 Time Patient Seen: 08:00 Interval history: Patient is somnolent lying in bed this morning, not easily arousable by voice or touch. Will not follow voice commands to complete physical exam. Briefly wakes to state he has pain to the operative hip. Exam Vital Signs (past 8 hours): - 04/05/23 04:45 04/05/23 07:52 Temperature 98.9 F Pulse Rate 86 Respiratory Rate 20 Blood Pressure 131/62 Pulse Oximetry 93 98 Oxygen Delivery Method Nasal Cannula Oxygen Flow Rate 2 2 Fraction of Inspired Oxygen 24 SaO2/FiO2 Ratio 400 Oxygen Delivery Method Nasal Cannula Oxygen Flow Rate 2 Narrative Exam Narrative: Somnolent, unarousable. Unable to complete thorough physical exam as patient cannot follow commands at this time. Left hip tender to light palpation. Intraoperative aquacel grossly clean, dry, and intact with only dime sized spot of blood proximally. Calves soft and compressible bilaterally. Objective Labs 04/05/23 06:30 04/05/23 06:30 Labs: Laboratory Results - last 24 hr 04/04/23 04/04/23 04/05/23 05:00 21:14 06:30 WBC 10.5 RBC 3.30 L Hgb 9.2 L 10.8 L Hct 26.5 L 31.9 L MCV 96.7 MCH 32.7 MCHC 33.8 RDW 18.4 H Plt Count 195 Neut % (Auto) 71.1 Lymph % (Auto) 16.0 L [place] % (Auto) 10.7 Eos % (Auto) 1.4 L Baso % (Auto) 0.8 Neut # (Auto) 7500 H Lymph # (Auto) 1700 [place] # (Auto) 1100 H Eos # (Auto) 200 Baso # (Auto) 100 Sodium Potassium Chloride Carbon Dioxide BUN Creatinine Estimated GFR BUN/Creatinine Ratio Glucose Calcium Blood Type B Positive Antibody Screen Negative Crossmatch See Detail 04/05/23 06:30 WBC RBC Hgb Hct MCV MCH MCHC RDW Plt Count Neut % (Auto) Lymph % (Auto) [place] % (Auto) Eos % (Auto) Baso % (Auto) Neut # (Auto) Lymph # (Auto) [place] # (Auto) Eos # (Auto) Baso # (Auto) Sodium 134 L Potassium 3.8 Chloride 101 Carbon Dioxide 30 BUN 16 Creatinine 0.68 Estimated GFR > 60 BUN/Creatinine Ratio 23.5 H Glucose 96 Calcium 8.1 L Blood Type Antibody Screen Crossmatch [facility] Medical History Alzheimer's dementia Anxiety Chest pain Depression Easy bruisability Epilepsy Heart burn Neck pain Numbness and tingling Osteoarthritis Pain RBBB (right bundle branch block) Seizures TIA (transient ischemic attack) Surgical History No history of previous surgery Social History household members: family Smoking Status: Smoker, status unknown alcohol intake: current Assessment & Plan Post-op Postoperative Procedures: Procedures Operation Date: 04/02/23 14:00 Actual Procedure Side Surgeon p Hip Hemiarthroplasty Gurpreet Jamia Hickman MD Postoperative day: 3 Postoperative status narrative: Patient's postoperative course is complicated by Alzheimer's dementia, bed-bound status at baseline, postoperative anemia. His pain has been well controlled. Postoperative plan narrative: Orthopedically, patient was to weightbear as tolerated with assistive devices. However, he is bed bound at baseline. He is to use abduction pillow while in bed and maintain posterior hip precautions for 6 weeks. Lovenox 40 mg subcutaneous for 4 weeks for DVT prophylaxis. Follow-up in 2 weeks for staple removal. May shower with Aquacel dressing but no soaking incision. Change as needed. Medical management per primary team and discharge as appropriate. Orthopedics will sign off. Please feel free to re-consult as needed. Quality VTE Deep Vein Thrombosis/Pulmonary Embolism Present on Admission: No
--- NOTE | 2023-04-05 08:37 | CM.DPC ---
Addendum entered by Ariella White R.N. 04/05/23 11:02: Called over at [facility] on [facility]. Phone number is: [phone]. Spoke to Edita, as Chen, [facility] director, is off today. Gave permission to call her number if patient is ready for discharge, for she would need to be informed. Her number is: [phone]. Confirmed that primary provider is LUNA Medina, patient was recently signed up with her as provider. Let Rita at [facility] know this. Also, gave her the phone number for Maribeth on [facility], in case she has further questions regarding this provider following. Rita has confirmed acceptance of patient. Discussed during team rounds, it is uncertain if he will be medically ready, he is still on oxygen, may need to have respiratory eval. He does have a catheter, facility would hope that he would not need this, as he would pull it out. They do change him every 2 hours. They are prepared to take him later today if needed. Original Note: DCP Cont: Called over at [facility], and spoke to Rita. Listed LUNA Martin, as primary, but have not yet been able to confirm. Confirmed with Rita at [facility] that they can accept patient as long as there is a primary care provider. This DC Engine House Helper will speak either to Chen at the [facility] (patient could discharge today), or [facility]. Confirmed with Rita that [facility] does not have their hospice services on [facility], should he eventually need to be converted to hospice. This DC Engine House Helper also did not realize that [facility] does not accept [facility]. Found out from Rita today that they have not been taking the insurance for a month. P: DCP to continue to follow. Plan is back to [facility] when stable, on [facility], will find out primary care provider that will follow. Ariella White RN/Contract Paralegal
[2023-04-05] MEDS: GABAPENTIN 300 MG CAPSULE 600 MG PO ×2 (09:18→21:33)
[2023-04-05] MEDS: levETIRAcetam 250 MG TABLET 750 MG PO ×2 (09:18→21:33)
[2023-04-05] MEDS: FERROUS SULFATE 325 MG TABLET PO (09:19)
[2023-04-05] MEDS: ACETAMINOPHEN 325 MG TABLET 650 MG PO ×2 (09:19→18:01)
--- NOTE | 2023-04-05 12:13 | P.PN_ITS ---
Subjective Subjective Interval history: Reports ongoing pain in left hip. Exam Vital Signs (past 8 hours): Fraction of Inspired Oxygen 24 SaO2/FiO2 Ratio 400 Oxygen Delivery Method Room Air Oxygen Flow Rate 0 Narrative Exam Narrative: General: Patient is a elderly gentleman, in no acute distress HEENT: Normocephalic, atraumatic,MMM Chest: Normal AP diameter and contour without kyphoscoliosis, Equal chest rise without nasal flaring, retractions, tachypneic or labored breathing. Lungs: Auscultation of all lung rudolph are clear without adventitious sounds, wheezes, rhonchi, or rales. Cardio: regular rate and rhythm without murmur, rubs, or gallops, no carotid bruit, no cardiac pulsations present. Abdomen: S NT ND Musculoskeletal: Significant muscle wasting throughout Skin: Warm dry and intact without rashes, ulcerations or petechiae. Neuro: Alert and orientated to self. sensation to touch intact, no gross deficits noted of cranial nerves. Psych: Patient is pleasant, able to follow commands. Objective Labs 04/05/23 06:30 04/05/23 06:30 [facility] Medical History Alzheimer's dementia Anxiety Chest pain Depression Easy bruisability Epilepsy Heart burn Neck pain Numbness and tingling Osteoarthritis Pain RBBB (right bundle branch block) Seizures TIA (transient ischemic attack) Surgical History No history of previous surgery Social History household members: family Smoking Status: Smoker, status unknown alcohol intake: current Assessment & Plan Assessment & Plan narrative: Sona Meza is a 77-year-old male with a past medical history of seizure disorder, history of TIA, RTBBB Alzheimer's dementia, HDL, iron-deficiency, GERD, HTN who resides at a facility on [facility], was brought into the ED after rolling out of bed landing on the floor fracturing left femur. #Fall from bed, resulting in pathologic left femoral neck fracture, acute, present on admission * s/p repair with orthopedic surgery * patient bedbound at baseline * mildly hypotensive overnight after surgery, probably due to anemia * f/u in ortho clinic in 2 weeks #Acute blood loss anemia, with chronic iron deficiency anemia - presume acute blood loss secondary to surgical procedure, also has received close to 5L of fluids this admission so may be in part dilutional. There is no obvious GI bleeding or bruising on exam, dressing is dry. - if h/h continues to downtrend - s/p 2 units PRBC on 04/04 - Hgb now stable #Seizure disorder, chronic, present on admission * Continue Keppra * Seizure precautions #Alzheimer's dementia, chronic, present on admission * Limit patient's stimulation & agitation as much as possible * Fall precautions * Continue sertraline, prazosin #Hypertension, essential, chronic, present on admission * Hold metoprolol as BP is soft at this time 107/56 #Hyperlipidemia, chronic, present on admission * Continue lipitor. #Osteoarthritis, chronic, present on admission * Continue gabapentin #GERD, chronic, present on admission * Hold omeprazole till after surgery #chronic immobility due to prior traumatic injuries. Code status:Full as discussed with patient and POA at bedside today. Surrogate decision maker: Sister Mustapha hughes DVT/VTE prophylaxis: Holding medication due to surgery, right SCD only Disposition: Back to [facility] once pain improves. Quality VTE Deep Vein Thrombosis/Pulmonary Embolism Present on Admission: No
[2023-04-05] MEDS: ONDANSETRON 4 MG ODT PO ×2 (17:40→21:33)
[2023-04-05] MEDS: OXYCODONE IR 5 MG TABLET PO (21:33)
[2023-04-05] MEDS: SERTRALINE 50 MG TABLET 100 MG PO (21:33)
[2023-04-05] MEDS: LIDOCAINE PATCH 1 EACH ADH..PATCH TOP (22:30)
[2023-04-06] MEDS: OXYCODONE IR 5 MG TABLET PO (06:26)
[2023-04-06] MEDS: ACETAMINOPHEN 325 MG TABLET 650 MG PO (06:26)
[2023-04-06 08:00] VITALS: BP 79/43; PULSE 82; RESP 16; TEMP 38.7; O2SAT 95
--- NOTE | 2023-04-06 08:28 | PC.NURSE ---
Patients blood pressure this morning 79/40. is aware. Lakins pressures have ran low since being admitted to the hospital. He is asymptomatic and denies any dizziness or syncopal episode. Dressing to deidre is [facility] and [facility]. Patient has a discharge order to go back to his adult family home in [place] today.
[2023-04-06] MEDS: levETIRAcetam 250 MG TABLET 750 MG PO (08:43)
[2023-04-06] MEDS: FERROUS SULFATE 325 MG TABLET PO (08:43)
[2023-04-06] MEDS: GABAPENTIN 300 MG CAPSULE 600 MG PO (08:43)
[2023-04-06] MEDS: DOCUSATE 100 MG CAPSULE PO (08:43)
--- NOTE | 2023-04-06 09:09 | CM.DPC ---
Addendum entered by Ariella White R.N. 04/06/23 10:57: Called Ambulance to let them know that patient is Medicaid. Also, confirmed that patient does not need oxygen, let them know. Was unable to get in touch with [facility], regarding transportation benefits. Updated Chen at [facility] on [address] that patient does not need oxygen, and that prescriptions were faxed to [place], [place]. Gave nurse, Shaila, her number for report, per her request. Family has not called back, left a message with niece about order picker/assembler. Original Note: DCP Cont: Patient has discharge orders. Was able to get in touch with Chen at [facility] on [address]. Her number is: [phone]. Updated her about discharge, just wants to ensure that he has his pain scripts filled, would like it sent to [facility] in [place]. Had Thuy fax over the prescriptions. DC Summary is pending, she will email them to adult family home as well. Set up transportation via BLS, as patient can't sit up in wheel-chair, for order picker/assembler at 1245. Ensured that he is not on oxygen, will discuss again during team rounds. Left a message with patient's niece, Maci, for unable to reach Taylor, sister, on her phone, about discharge. Had discussion with sister a couple of days ago, regarding transportation, as in some cases, can get a bill. Sister, Mustapha, indicated, they hope that Medicaid will pay for it, since they can't afford the bill. Let her know that there is no other way to get him home. Did leave a message with [facility] Terminal Operator to ensure that he has transportation benefits. Called Rita at [facility], and updated her on discharge. Faxed her over face sheet, face to face, orders, H&P, and recent progress notes. DC Summary is pending. Updated nurse, Shaila, and white board at main nurses station. P: Patient is to be picked up at 1245, via BLS, have left niece a message. Will discuss further at team rounds to ensure that he does not need oxygen. Ariella White RN/Community Living Specialist
--- NOTE | 2023-04-06 11:48 | PM.DS.1 ---
History of Present Illness History of Present Illness Chief complaint: Left femoral neck fracture Narrative: 77-year-old male with a past medical history of seizure disorder, remote TIA, RTBBB Alzheimer's dementia, HDL, iron-deficiency, GERD, &HTN who resides at a senior living on [facility], was brought into the ED after rolling out of bed landing on the floor fracturing left femur. Ed was unable to verify if pt had hit his head or had a LOC, head CT was negative for any acute changes. Unable to obtain accurate HPI, ROS, med reconciliation due to patient's Alzheimer dementia.? Patient complains of left hip pain, denies chest pain, shortness at breath, any other pain or discomfort at this time.? His moving around in bed and appears to be in mild discomfort, but in no acute distress at this time. Discharge Providers Provider Date of admission: 04/02/23 02:41 Discharge Date: 04/06/23 Consults: 04/02/23 03:01 Consult to Physician Routine Comment: Consulting Provider: Jamia Hickman Reason for consultation: Left femoral neck fracture Has provider been notified: Yes 04/02/23 21:59 Consult to Discharge Planning Routine Comment: Consult to Physical Therapy Evaluate & Treat Comment: wbat , php x 6 wks, abd pillow when in bed Physician Instructions: Evaluate and Treat 04/03/23 10:21 Consult to Occupational Therapy Evaluate & Treat Comment: Physician Instructions: Evaluate and treat 04/03/23 14:33 Consult to Home Health Routine Comment: P.T. exercise program, RN, wound care post hip Reason For Exam: Home Health RN, P.T. Discharge provider: Artur Zamorano MD Summary Hospital Course Discharge Diagnosis: 1. Pathologic left femoral neck fracture 2. Acute blood loss anemia 3. Chronic iron deficiency anemia 4. Alzheimer' dementia 5. Seizure disorder Procedure: Left hip hemiarthroplasty 04/02/[address] Jamia Hickman Hospital Course: Patient was admitted due to fracture from rolling out of bed and having osteoporosis. He had definitive treatment with hemiarthroplasty. Had significant drop in hemoglobin postop and transfused 2 units PRBC. There is no indication of a GI bleed. He is chronically on daily oral iron. He is being discharged back to adult family home where he lives. Status at Discharge Cognitive/behavioral status at discharge: at baseline, confused Functional status at discharge: wheelchair bound Overall status at discharge: patient is progressing back to baseline Time Spent with Patient Time spent: Greater than 30 minutes Exam Vital Signs (past 8 hours): - 04/06/23 08:00 04/06/23 07:00 Temperature 101.7 F H Pulse Rate 82 Respiratory Rate 16 Blood Pressure 79/43 L Pulse Oximetry 95 Oxygen Delivery Method Room Air Oxygen Flow Rate 0 Fraction of Inspired Oxygen 24 SaO2/FiO2 Ratio 400 Oxygen Delivery Method Room Air Oxygen Flow Rate 0 Narrative Exam Narrative: General: Patient alert, at baseline confused Lungs: Clear Extremities: Left hip operative site with clean, dry dressing, no distal edema, distal sensation intact Objective Labs 04/05/23 06:30 04/05/23 06:30 [facility] Medical History Alzheimer's dementia Anxiety Chest pain Depression Easy bruisability Epilepsy Heart burn Neck pain Numbness and tingling Osteoarthritis Pain RBBB (right bundle branch block) Seizures TIA (transient ischemic attack) Surgical History No history of previous surgery Social History household members: family Smoking Status: Smoker, status unknown alcohol intake: current Discharge Assessment & Plan Assessment and Plan Assessment: Patient's postoperative course is complicated by Alzheimer's dementia and bed-bound status at baseline. His pain has been well controlled. Plan of Treatment: Since patient is bed-bound at baseline, he has not worked with physical therapy. His pain has been well controlled with medication. He will return to his adult family tomorrow, ambulance transfer scheduled for tomorrow at noon. He will follow up with Orthopedics 2 weeks after surgery for staple removal. Discharge Plan Discharge Plan Patient Disposition: Home Discharge orders & Medications Prescriptions: New sennosides [senna] 8.6 mg Tablet 17.2 mg PO BEDTIME Qty: 60 0RF oxycodone 5 mg Tablet 5 mg PO Q6H PRN (Reason: Pain, Mild (1-3)) Qty: 30 0RF Continued sennosides [senna] 8.6 mg Tablet 8.6 mg PO BID atorvastatin 20 mg Tablet 20 mg PO BEDTIME polyethylene glycol 3350 [Miralax] 17 gram Powder In Packet 17 g PO BID prazosin 1 mg Capsule 1 mg PO BEDTIME sertraline 100 mg Tablet 100 mg PO BEDTIME melatonin 3 mg Tablet 6 mg PO BEDTIME aspirin 81 mg Tablet,Delayed Release (Dr/Ec) 81 mg PO DAILY acetaminophen 500 mg Tablet 1,000 mg PO TID gabapentin 300 mg Capsule 600 mg PO BID gabapentin 300 mg Capsule 300 mg PO DAILY Rx Instructions: At noon omeprazole 20 mg Capsule,Delayed Release(Dr/Ec) 20 mg PO DAILY ferrous sulfate 325 mg (65 mg iron) Tablet,Delayed Release (Dr/Ec) 325 mg PO DAILY cholecalciferol (vitamin D3) 25 mcg (1,000 unit) tablet 1,000 unit PO DAILY diclofenac sodium [Arthritis Pain (diclofenac)] 1 % Gel 4 g TOPICAL QID Rx Instructions: apply to single knee, ankle, foot; for foot includes sole/toes/top of foot levetiracetam 750 mg Tablet 750 mg PO BID metoprolol tartrate 25 mg Tablet 12.5 mg PO BID Follow up/Referrals: Jamia Hickman MD [Physician] - 2 Weeks (Follow up 2 weeks after surgery for staple removal.) Diet/Activity/Treatments Diet: Regular Activity: Weightbear as tolerated with assistive devices. Abduction pillow while in bed. Posterior hip precautions for 6 weeks. Other treatments: Lovenox 40 mg subcutaneous for 4 weeks for DVT prophylaxis. Follow-up in 2 weeks for staple removal. Skin/Wound/Dressing Care Report to your healthcare provider any signs of infection, such as:: chills, fever, night sweats, unusual drainage and unusual redness Dressing: May shower with Aquacel dressing but no soaking incision. Change as needed. Visit Report/Discharge Packet Stand Alone Forms: Patient Portal/API, Stroke Signs & Symptoms, Surgery Discharge Quality VTE Deep Vein Thrombosis/Pulmonary Embolism Present on Admission: No
== END 2023-04-06 13:05 | disposition home health service (06) | DRG 522 ==
LOC: ED 04-02 02:37 → AC 04-02 02:42 → ICU 04-03 04:56 → AC 04-03 05:02 → ICU 04-03 05:22 → AC 04-03 17:01
PROVIDERS: Internal Medicine; Admitting Provider Nurse Practitioner Family; Emergency Provider Emergency Medicine; Referring Provider Orthopaedic Surgery Foot and Ankle Surgery; Visit Provider Nurse Practitioner Family
PROC: 0SRS019 Replacement of Left Hip Joint, Femoral Surface with Metal Synthetic Substitute, Cemented, Open Approach (ICD-10-PCS; principal; 2023-04-02 14:00)
DX: M80.052A Age-related osteoporosis with current pathological fracture, left femur, initial encounter for fracture (principal); D62 Acute posthemorrhagic anemia; M62.3 Immobility syndrome (paraplegic); G40.909 Epilepsy, unspecified, not intractable, without status epilepticus; G30.9 Alzheimer's disease, unspecified; I10 Essential (primary) hypertension; E78.5 Hyperlipidemia, unspecified; K21.9 Gastro-esophageal reflux disease without esophagitis; D50.9 Iron deficiency anemia, unspecified; F02.B0 Dementia in other diseases classified elsewhere, moderate, without behavioral disturbance, psychotic disturbance, mood disturbance, and anxiety; M16.12 Unilateral primary osteoarthritis, left hip; F32.A Depression, unspecified; Z20.822 Contact with and (suspected) exposure to COVID-19
CPT/HCPCS: 36415; 36430; 70450; 71045; 72125; 72170; 73502; 80048; 80053; 81001; 82962; 84484; 85014; 85018; 85025; 85610; 85730; 86850; 86900; 86901; 87040; 87797; 93005; 94760; 96374; 99285; C1776; P9016; C9290; J0131; J0171; J0690; J1100; J1170; J1650; J1885; J2310; J3010